=== PATIENT | female | born 1985 | race Caucasian/White ===

== ENCOUNTER 2019-11-11 12:54 | Outpatient (CLI) | payer OTHER, SELFPAY ==
[2019-11-11 13:30] LABS: Blood Urea Nitrogen 12 mg/dL (7-17); Calcium 9.2 mg/dL (8.4-10.2); Carbon Dioxide 23 mmol/L (22-30); Chloride 103 mmol/L (98-107); Cholesterol 196 mg/dL (0-200); Estimated Glomerular Filt Rate > 60; Glucose 227 mg/dL (65-105); HDL Direct 41 mg/dL; Potassium 4.2 mmol/L (3.4-5.0); Sodium 136 mmol/L (137-145); Triglycerides 169 mg/dL (<150)
[2019-11-11 13:41] LABS: LDL Cholesterol Direct 122 mg/dL
[2019-11-11 13:56] LABS: Creatinine Urine 180.9 mg/dL
[2019-11-11 14:01] LABS: MALB Creatinine Ratio 19.5 mg/g (0-30); Microalbumin Urine Random 35.3 mg/L (0-16.7)
[2019-11-13 13:27] LABS: Glutamic acid decarboxylase AA <5 IU/mL (<5)
[2019-11-13 20:34] LABS: C-Peptide 1.64 ng/mL (0.80-3.85)
[2019-11-19 16:45] LABS: Zinc Transporter 8 Antibody <10 U/mL (<15)
[2019-11-20 23:36] LABS: Islet Cell Antibody Screen NEGATIVE (NEGATIVE)
== END 2019-11-11 12:55 | disposition home or self-care (01) ==
PROVIDERS: PCP Internal Medicine; Visit Provider Internal Medicine Endocrinology, Diabetes & Metabolism
DX: E11.65 Type 2 diabetes mellitus with hyperglycemia (principal); Z79.4 Long term (current) use of insulin; Z68.37 Body mass index [BMI] 37.0-37.9, adult; E88.81 Metabolic syndrome and other insulin resistance
CPT/HCPCS: 36415; 80048; 80061; 82043; 84681; 86341

== ENCOUNTER 2019-11-11 14:52 | Emergency (ER) | payer OTHER, SELFPAY ==
--- NOTE | ~2019-11-11 | CT_ITS ---
EXAMINATION: CT abdomen pelvis w con EXAM DATE: 11/11/2019 16:39 INDICATION: Abdominal pain, distention. TECHNIQUE: Spiral CT of the abdomen and pelvis was performed following intravenous injection of 100 m L Omnipaque 350. Axial, coronal and sagittal images were reviewed. The dose-length product (DLP) fo r this examination was 1174.86 mGy-cm. The exposure was tailored according to patient size (auto mA exposure control), and iterative reconstruction (ASIR) was used as additional dose reduction techniqu e. Comparison is made to prior examination from 12/03/2007. FINDINGS: There is hepatic steatosis without suspicious focal lesion identified. Spleen, adrenal glan ds, pancreas are unremarkable. Gallbladder not identified, patient likely has had cholecystectomy. Portal and splenic veins are patent. Kidneys enhance symmetrically. There is no hydronephrosis. T here is IUD which appears to be centrally located within the endometrium, expected position. The rancho dder is unremarkable. There is no retroperitoneal or pelvic lymphadenopathy. Tiny umbilical fat-co ntaining hernia. The appendix is normal. The stomach and small bowel are unremarkable. There is expected amount of c olonic stool. No free intraperitoneal gas. The heart is normal in size. There are no pericardial or pleural effusions. The lung bases are unremarkable. The bones are unremarkable. No IMPRESSION: 1. Hepatic steatosis. 2. No acute intra-abdominal findings. Reviewed, dictated and finalized at location A.
[2019-11-11 15:02] VITALS: BP 143/90; PULSE 105; RESP 18; TEMP 36.6; O2SAT 98
--- NOTE | 2019-11-11 15:22 | ED.ABDPAIN ---
HPI - Abdominal Pain General Chief Complaint: Abdominal Pain Stated Complaint: abd pain, n/v/d Time Seen by Provider: 11/11/19 15:18 Source: patient Mode of arrival: ambulatory Limitations: no limitations History of Present Illness HPI narrative: Patient is a 34-year-old female who presents for evaluation of abdominal pain. Patient reports a 2-day history of worsening upper abdominal pain, that radiates to her back. Patient also reports abdominal distention and diarrhea. Patient reports she has had associated nausea and vomiting, unable to tolerate any oral intake over the past day. Patient denies fever, reports she has been burping often. She denies urinary symptoms. Patient has history of numerous abdominal surgeries including cholecystectomy, 2 sections, bladder repair. Patient denies any fever, cough, cold congestion type symptoms. Related Data Home Medications Medication Instructions Recorded Confirmed albuterol sulfate 90 mcg/actuation 2 puff INHALATION Q4H PRN 10/30/19 10/30/19 aerosol inhaler atorvastatin 20 mg tablet 20 mg PO DAILY 10/30/19 budesonide-formoterol HFA 160 2 puff INHALATION Q12H 10/30/19 10/30/19 mcg-4.5 mcg/actuation aerosol inhaler cetirizine 10 mg tablet 10 mg PO DAILY 10/30/19 montelukast 10 mg tablet 10 mg PO DAILY 10/30/19 10/30/19 venlafaxine 37.5 mg tablet 37.5 mg PO DAILY 10/30/19 insulin degludec [Tresiba 82 unit SUB-Q HS 11/11/19 FlexTouch U-200] valacyclovir 1,000 mg PO DAILY 11/11/19 Allergies Allergy/AdvReac Type Severity Reaction Status Date / Time Cephalosporins Allergy Severe KIDNEYS Verified 11/11/19 15:27 SHUT DOWN nitrofurantoin Allergy Severe HIVES/WHEEX Verified 11/11/19 15:27 ING sulfamethoxazole Allergy Severe ANAPHYLAXIS Verified 11/11/19 15:27 trimethoprim Allergy Severe ANAPHYLAXIS Verified 11/11/19 15:27 amoxicillin Allergy Intermediate RASH/HIVES Verified 11/11/19 15:27 Penicillins Allergy Intermediate RASH Verified 11/11/19 15:27 adhesive Allergy Mild Rash Verified 11/11/19 15:27 morphine Allergy Mild RASH Verified 11/11/19 15:27 cefaclor Allergy Unknown SERUM Verified 11/11/19 15:27 SICKNESS metoclopramide AdvReac Severe Anxiety Verified 11/11/19 15:27 Review of Systems Review of Systems: Narrative: CONSTITUTIONAL: Denies fever, chills, or sweats. ENT: Denies rhinorrhea, congestion, sore throat, or otalgia. CARDIOVASCULAR: Denies chest pain, palpitations, or edema. RESPIRATORY: Denies cough or dyspnea. GASTROINTESTINAL: Reports abdominal pain, nausea, vomiting, and diarrhea. GENITOURINARY: Denies dysuria or hematuria. SKIN: Denies rash or itching. MUSCULOSKELETAL: Denies back pain, joint pain, or myalgia. NEUROLOGIC: Denies headache, numbness, or weakness. FORMERLY [facility], [facility] Past Medical History Medical History Anxiety Asthma delivery delivered Depression Endometriosis High blood pressure History of gastroesophageal reflux (GERD) Urine incontinence Surgical History Surgical History H/O dilation and curettage H/O hand surgery History of bladder surgery Previous section Family History Family History Father Diabetes mellitus Social History Social History Smoking status: Never smoker Second hand tobacco smoke exposure: No Alcohol intake: never Substance use: never Additional living arrangements comments: lives with 2 daughter (2 and 12 yrs old) and her Additional occupation/education comments: works at [employer] Gender identity (if verbalized by the patient): Female Spiritual care concerns: No Agree to blood products: Yes Exam Narrative: Exam Narrative: GENERAL: Awake, alert, conversant HEAD: Normocephalic, atraumatic. EYES: PERRLA and EOMI
[2019-11-11 15:30] VITALS: BP 118/90; PULSE 104; RESP 16; TEMP 37.6; O2SAT 98
[2019-11-11 15:30] LABS: Basophils Absolute Auto 0.1 K/mm3 (0.0-0.1); Basophils Percent Auto 0.8 % (0.2-1.2); Eosinophils Absolute Auto 0.3 K/mm3 (0-0.3); Eosinophils Percent Auto 2.6 % (0-4.4); Hematocrit 46.8 % (37.0-47.0); Hemoglobin 15.5 g/dL (12.0-15.0); Immature Granulocyte Absolute 0.03 K/mm3 (0.00-0.031); Immature Granulocyte Percent A 0.3 % (0-0.5); Lymphocytes Percent Auto 44.9 % (18.3-44.2); Mean Corpuscular HGB Conc 33.1 g/dl (32-36); Mean Corpuscular Hemoglobin 29.4 pg (26-34); Mean Corpuscular Volume 88.8 fl (80-100); Mean Platelet Volume 9.7 fl (7.4-10.4); Monocytes Absolute Auto 0.7 K/mm3 (0.1-0.6); Monocytes Percent Auto 6.7 % (2.6-8.5); Neutrophils Absolute Auto 4.5 K/mm3 (1.3-6.7); Neutrophils Percent Auto 44.7 % (45.5-73.1); Platelet Count Result 330 k/mm3 (150-375); Red Blood Count 5.27 M/mm3 (4.2-5.4); Red Cell Distribution Width 12.3 % (11.5-14.5)
[2019-11-11 15:34] LABS: Add Urine Microscopic? YES; Appearance Urine Clear (Clear); Bacteria Urine Trace /hpf; Bilirubin Urine Negative (Negative); Blood Urine 1+ (Negative); Color Urine Yellow (Yellow); Glucose Urine UA 1+ mg/dL (Negative); Ketones Urine Negative (Negative); Leukocyte Esterase Ur Negative LEU/UL (Negative); Mucus Urine Rare /lpf; Nitrate Urine Negative (Negative); Protein Urine 1+ mg/dL (Negative); RBC Urine 0-2 /hpf (0-2); Specific Grav Ur 1.027 (1.001-1.035); Squamous Epithelial Cell Urine Many /hpf (Few); Urobilinogen Urine Negative mg/dL (<2.0); WBC Urine 0-3 /hpf
[2019-11-11 15:41] LABS: Alanine Aminotransferase 42 U/L (4-35); Albumin Level 4.8 g/dL (3.5-5.1); Alkaline Phosphatase 94 U/L (38-126); Aspartate Amino Transferase 44 U/L (14-36); Bilirubin,Total 0.6 mg/dL (0.2-1.3); Blood Urea Nitrogen 11 mg/dL (7-17); Calcium 9.5 mg/dL (8.4-10.2); Carbon Dioxide 24 mmol/L (22-30); Chloride 103 mmol/L (98-107); Estimated CRCL calculation 127 ml/min; Estimated Glomerular Filt Rate > 60; Glucose 197 mg/dL (65-105); Lipase 72 U/L (23-300); Sodium 136 mmol/L (137-145)
[2019-11-11] MEDS: ONDANSETRON INJ 4 MG/2 ML VIAL (17:46)
[2019-11-11] MEDS: SODIUM CHLORIDE 0.9% IV 2,000 ML 999 ML (17:46)
[2019-11-11 18:14] VITALS: BP 118/81; PULSE 84; RESP 16; TEMP 37.1; O2SAT 97
--- NOTE | 2019-11-11 18:28 | PC.NURSE ---
Pt declined 2nd liter of fluid. 1L infused.
== END 2019-11-11 18:31 | disposition home or self-care (01) ==
PROVIDERS: Emergency Medicine; Emergency Provider Emergency Medicine; PCP Internal Medicine
DX: R10.33 Periumbilical pain (principal); R11.2 Nausea with vomiting, unspecified; K76.0 Fatty (change of) liver, not elsewhere classified; F41.9 Anxiety disorder, unspecified; J45.909 Unspecified asthma, uncomplicated; I10 Essential (primary) hypertension; K21.9 Gastro-esophageal reflux disease without esophagitis
CPT/HCPCS: 36415; 74177; 80048; 80053; 80061; 81001; 81025; 82043; 83690; 84681; 85025; 86341; 96361; 96374; 96375; 99284; J2405; J3010; J7030; Q9967

== ENCOUNTER 2020-05-19 15:17 | Outpatient (CLI) | payer OTHER, SELFPAY ==
--- NOTE | ~2020-05-19 | XR_ITS ---
EXAMINATION: XR finger 5th RT min 2V DATE: 05/19/2020 15:40 INDICATION: Right hand fifth digit pain. TECHNIQUE: 3 views of right hand fifth digit were obtained. COMPARISON: None. FINDINGS: Bone alignment is normal. No fracture. There are 3 screws in diaphysis of fifth proximal ph alanx. Joint spaces are normal. IMPRESSION: 1. No acute fracture. Reviewed, dictated and finalized at location A. MAKER IMPRESSION: 1. No acute fracture.
== END 2020-05-19 15:18 | disposition home or self-care (01) ==
LOC: ANHIMG 15:25
PROVIDERS: PCP Internal Medicine; Visit Provider Plastic Surgery
DX: T84.84XA Pain due to internal orthopedic prosthetic devices, implants and grafts, initial encounter (principal); S62.64 Nondisplaced fracture of proximal phalanx of finger
CPT/HCPCS: 73140

== ENCOUNTER 2020-06-08 19:22 | Observation (INO) | payer OTHER, SELFPAY ==
[2020-06-08] VITALS (11 sets, daily range): BP systolic 126–140; BP diastolic 65–74; PULSE 107–127; RESP 20–24; TEMP 37.1; O2SAT 95–100
--- NOTE | ~2020-06-08 | XR_ITS ---
EXAMINATION: XR chest 2V DATE: 06/08/2020 21:32 INDICATION: Asthma presenting with shortness of breath and wheezing TECHNIQUE: PA and lateral views of the chest were obtained. COMPARISON: Chest radiograph dated 11/23/2017 FINDINGS: The lungs remain clear with no focal airspace opacities, pulmonary edema, pleural effusion or pneumot horax. The cardiomediastinal silhouette is normal. Visualized bones and soft tissues are unremarkable . IMPRESSION: 1. No acute cardiopulmonary disease. Reviewed, dictated and finalized at location H. PROSPECTOR
[2020-06-08] MEDS: IPRATROPIUM 0.5 MG/ALBUTEROL SULFATE 2.5 MG AMPUL.NEB 3 ML (19:45)
--- NOTE | 2020-06-08 20:02 | ED.ALLEREA ---
HPI - Allergic Reaction General Chief complaint: Upper Respiratory Infection Stated complaint: swollen all over, trouble breathing Source: patient Mode of arrival: ambulatory Limitations: no limitations History of Present Illness HPI narrative: Patient states she has had shortness of breath all day, gradually getting worse. She says she has asthma and has been admitted many times for this. Severity of shortness of breath is moderately severe, and ongoing. Nothing at work today made any difference. Exposure: unknown Symptoms: facial swelling and difficulty breathing Severity: severe Treatment prior to arrival: bronchodilator Previous Allergic Reaction History: other (Asthma, admissions in the past) Related Data Home Medications Medication Instructions Recorded Confirmed albuterol sulfate 90 mcg/actuation 2 puff INHALATION Q4H PRN 10/30/19 06/08/20 aerosol inhaler atorvastatin 20 mg tablet 20 mg PO DAILY 10/30/19 06/08/20 budesonide-formoterol HFA 160 2 puff INHALATION Q12H 10/30/19 06/08/20 mcg-4.5 mcg/actuation aerosol inhaler cetirizine 10 mg tablet 10 mg PO DAILY 10/30/19 06/08/20 montelukast 10 mg tablet 10 mg PO DAILY 10/30/19 06/08/20 venlafaxine 37.5 mg tablet 37.5 mg PO DAILY 10/30/19 06/08/20 valacyclovir 1,000 mg PO DAILY 11/11/19 06/08/20 bupropion HCl 300 mg PO DAILY 06/08/20 06/08/20 buspirone 11.25 mg PO DAILY 06/08/20 06/08/20 Allergies Allergy/AdvReac Type Severity Reaction Status Date / Time Cephalosporins Allergy Severe KIDNEYS Verified 11/11/19 15:27 SHUT DOWN nitrofurantoin Allergy Severe HIVES/WHEEX Verified 11/11/19 15:27 ING sulfamethoxazole Allergy Severe ANAPHYLAXIS Verified 11/11/19 15:27 trimethoprim Allergy Severe ANAPHYLAXIS Verified 11/11/19 15:27 amoxicillin Allergy Intermediate RASH/HIVES Verified 11/11/19 15:27 Penicillins Allergy Intermediate RASH Verified 11/11/19 15:27 adhesive Allergy Mild Rash Verified 11/11/19 15:27 morphine Allergy Mild RASH Verified 11/11/19 15:27 cefaclor Allergy Unknown SERUM Verified 11/11/19 15:27 SICKNESS metoclopramide AdvReac Severe Anxiety Verified 11/11/19 15:27 Review of Systems Review of Systems: All systems reviewed & are unremarkable except as noted in HPI and below (HPI) Constitutional: Constitutional: Reports no additional constitutional complaints Eyes: Eyes: Reports no additional eye complaints ENT: Reports system reviewed and no additional complaints, except as documented Cardiovascular: Cardiovascular: Reports no additional cardiovascular complaints Respiratory: Respiratory: Reports no additional respiratory complaints Gastrointestinal: Gastrointestinal: Reports no additional gastrointestinal complaints Genitourinary: Genitourinary: Reports no additional female genitourinary complaints Musculoskeletal: Musculoskeletal: Reports no additional musculoskeletal complaints Integumentary/Breasts: Skin/Breast: Reports system reviewed and no additional complaints, except as docu Neurologic: Reports system reviewed and no additional complaints, except as documented Psychiatric: Psychiatric: Reports no additional psychiatric complaints Endocrine: Endocrine: Reports no additional endocrine complaints Hematologic/Lymphatic: Hematologic/Lymphatic: Reports no additional hematologic/lymphatic complaints Allergic/Immunologic: Allergic/Immunologic: Reports no additional allergic/immunologic complaints PMFSH Past Medical History Medical History (Updated 06/08/20 @ 23:47 by Cheo Le MD) Anxiety Asthma delivery delivered Depression Endometriosis High blood pressure History of gastroesophageal reflux (GERD) Urine incontinence Surgical History Surgical History H/O dilation and curettage H/O hand surgery History of bladder surgery Previous section Family History Family History Father Phoebe
[2020-06-08] MEDS: ALBUTEROL SULFATE NEB 2.5 MG/3 ML INH 5 MG INHALATION (20:21)
[2020-06-08] MEDS: FAMOTIDINE 20 MG TABLET 40 MG PO (20:23)
[2020-06-08] MEDS: methylPREDNISolone SOD SUCC 125 MG VIAL IM (20:24)
[2020-06-08] MEDS: diphenhydrAMINE HCl INJ 50 MG/ML VIAL IM (20:24)
[2020-06-08] MEDS: EPINEPHrine HCL INJ 1 MG/ML AMPUL 0.3 MG IM ×2 (20:45→22:18)
--- NOTE | 2020-06-08 20:46 | ECG_ITS ---
Measurements Intervals [place] Rate: 118 P: 52 IL: 169 QRS: 42 QRSD: 94 T: 9 QT: 263 QTc: 368 Interpretive Statements SINUS TACHYCARDIA LOW QRS VOLTAGE IN PRECORDIAL LEADS BORDERLINE ST-T WAVE ABNORMALITY- ANT/INF LEADS BASELINE WANDER- III, V2-V4 ABNORMAL ECG Electronically Signed On 06-09-2020 7:28:20 RACQUET MAKER by Ricardo Farley D.O.
[2020-06-08 21:19] LABS: SARS-CoV-2 Ag Negative (Negative)
[2020-06-08 21:22] LABS: BNP < 5 pg/mL (0-100)
[2020-06-08 21:27] LABS: Anion Gap 12 mmol/L (8-16); Blood Urea Nitrogen 10 mg/dL (7-18); Calcium 9.3 mg/dL (8.5-10.1); Carbon Dioxide 28 mmol/L (21-32); Chloride 100 mmol/L (98-108); Estimated Glomerular Filt Rate > 60; Glucose 129 mg/dL (70-99); Osmolality Calculated 291 mOsm/kg (285-295); Potassium 3.3 mmol/L (3.5-5.1); Sodium 140 mmol/L (136-145); Troponin I < 0.02 ng/mL (0.00-0.056)
[2020-06-08] MEDS: IPRATROPIUM 0.5 MG/ALBUTEROL SULFATE 2.5 MG AMPUL.NEB 3 ML INHALATION (21:36)
[2020-06-08 22:03] LABS: D Dimer 0.19 mg/L (0.19-0.50)
[2020-06-08] MEDS: DEXAMETHASONE SOD PHOS INJ 4 MG/ML VIAL 6 MG BY MOUTH (22:18)
[2020-06-08] MEDS: POTASSIUM CHLORIDE 20 MEQ TABLET 40 MEQ PO (22:24)
[2020-06-08] MEDS: MAGNESIUM SULF 2 GM/WATER 50ML 2 GM/50 ML BAG IVPB (22:24)
[2020-06-08] MEDS: ACETAMINOPHEN 500 MG TABLET 1000 MG PO (22:25)
[2020-06-08] MEDS: ALBUTEROL SULFATE NEB 2.5 MG/3 ML INH INHALATION (23:24)
[2020-06-08 23:25] LABS: Add Urine Microscopic? NO; Appearance Urine Clear (Clear); Bilirubin Urine Negative (Negative); Blood Urine Negative (Negative); Color Urine Yellow (Yellow); Glucose Urine UA Negative (Negative); Ketones Urine Negative (Negative); Leukocyte Esterase Ur Negative (Negative); Nitrate Urine Negative (Negative); Protein Urine Negative (Negative); Specific Grav Ur >= 1.030 (1.010-1.020); Urobilinogen Urine 0.2 mg/dL (0.2-1.0); pH Urine 5.5 (5.0-8.0)
[2020-06-09] VITALS (11 sets, daily range): BP systolic 114–120; BP diastolic 54–62; PULSE 72–120; RESP 16–22; TEMP 36.1–36.9; O2SAT 94–99; BMI 41.4
--- NOTE | 2020-06-09 00:30 | ADMGEN ---
This patient, Elsy Kate, was admitted to 2nd Floor Room 204-2. Patient/family oriented to hospital policies and general routines including ID bracelet, bed and alarms, visiting hours, pain management, procedures, bathroom and other care routines, personal items, smoking policy, room service/diet, and visiting hours. Information on how to activate the Rapid Response Team has been discussed. Patient/Family are encouraged to report perceived risks to care and to ask questions if they do not understand what they are told or what they should do.
--- NOTE | 2020-06-09 00:30 | PC.NURSE ---
No password given, Patient states that her mom Shey and boyfriend [place] are permitted to discuss information regarding patient. Patient states to contact her mother first about issues.
[2020-06-09] MEDS: IPRATROPIUM 0.5 MG/ALBUTEROL SULFATE 2.5 MG AMPUL.NEB 3 ML INHALATION ×4 (01:14→13:59)
[2020-06-09] MEDS: methylPREDNISolone SOD SUCC 125 MG VIAL 60 MG IV PUSH ×3 (01:14→12:51)
--- NOTE | 2020-06-09 01:20 | PC.NURSE ---
Patient stating that she is having severe muscle cramps in arms where she received Epi injections IM to back of arms. Patient states that muscles cramps are down to her fingers, asking for something to help with cramping. N.O. received for baclofen.
[2020-06-09] MEDS: BACLOFEN 10 MG TABLET 30 MG (01:28)
--- NOTE | 2020-06-09 01:33 | PC.NURSE ---
[facility] called to ask for clarification about Baclofen dosage.
--- NOTE | 2020-06-09 01:35 | PC.NURSE ---
Dr. Le notifed about [facility] pharmacy's request for clarification on Baclofen for pt.
--- NOTE | 2020-06-09 01:42 | PC.NURSE ---
[facility] pharmacy notified of Dr. Le's clarification about the Baclofen order.
[2020-06-09 08:19] LABS: Basophils Absolute Auto 0.06 K/mm3 (0.00-0.10); Basophils Percent Auto 0.4 % (0.0-1.0); Eosinophils Percent Auto 1.3 % (1.0-6.0); Hemoglobin 14.7 g/dL (12.0-15.0); Immature Granulocyte Absolute 0.07 K/mm3 (0.00-0.00); Immature Granulocyte Percent A 0.5 % (0.0-0.0); Lymphocytes Absolute Auto 7.77 K/mm3 (1.10-4.50); Lymphocytes Percent Auto 50.3 % (18.0-42.0); Mean Corpuscular HGB Conc 32.7 g/dL (32.0-36.0); Mean Corpuscular Hemoglobin 29.6 pg (27.0-31.0); Mean Corpuscular Volume 90.5 fL (78.0-102.0); Mean Platelet Volume 9.8 fl (9.2-11.8); Monocytes Absolute Auto 0.77 K/mm3 (0.10-0.90); Neutrophils Absolute Auto 6.6 K/mm3 (1.7-7.2); Neutrophils Percent Auto 42.5 % (50.0-70.0); Platelet Count Result 332 K/mm3 (150-420); Red Blood Count 4.97 M/mm3 (4.20-5.40); Red Cell Distribution Width 12.3 % (11.6-14.4); White Blood Count 15.5 K/mm3 (4.8-10.8)
--- NOTE | 2020-06-09 08:54 | PC.NURSE ---
0730 does her own accucheck 254 and doses self with her own insulin pump. claims she is feeling better. claims she feels hoarse from all the coughing during night. maximo milian
--- NOTE | 2020-06-09 12:37 | PC.NURSE ---
Due to covid visitor restrictions, took patient's care keys and insurance card to Suzan at [facility], for patient's daughter would be coming to get them.
[2020-06-09] MEDS: BACLOFEN 10 MG TABLET 30 MG PO (12:51)
--- NOTE | 2020-06-09 14:33 | PM.SD ---
Same Day Admit/Disch: HPI History of Present Illness Chief complaint: asthma Narrative: Elsy Kate is a 34 year old female who came into the ER yesterday with swelling of the face and body swelling and acute asthma. On interviewing the patient asked her about any new items in the home and she concluded that there was a new cruz cream her started using yesterday made by the same manufacture but with a different sent. I informed her that this is probably the culprit of the asthma exacerbation and that she should discard this immediately. This morning patient states she is feeling a lot better her breathing has improved swelling has gone down and she is feeling more like herself and ready to go home. FORMERLY [facility] Past Medical History Medical History Anxiety Asthma delivery delivered Depression Endometriosis High blood pressure History of gastroesophageal reflux (GERD) Urine incontinence Surgical History Surgical History H/O dilation and curettage H/O hand surgery History of bladder surgery Previous section Family History Family History Father Diabetes mellitus Social History Social History Smoking status: Former smoker Second hand tobacco smoke exposure: No Alcohol intake: never Substance use: never Additional living arrangements comments: lives with 2 daughter (2 and 12 yrs old) and her Additional occupation/education comments: works at [employer] Gender identity (if verbalized by the patient): Female Sexual Orientation (if Verbalized by the Patient): Straight or Heterosexual Spiritual care concerns: No Agree to blood products: Yes Same Day Admit/Disch: Med Pre-admit Medications Home Medications Medication Instructions Recorded Confirmed Type albuterol sulfate 90 mcg/actuation 2 puff INHALATION Q4H PRN 10/30/19 06/08/20 History aerosol inhaler atorvastatin 20 mg tablet 20 mg PO DAILY 10/30/19 06/08/20 History budesonide-formoterol HFA 160 2 puff INHALATION Q12H 10/30/19 06/08/20 History mcg-4.5 mcg/actuation aerosol inhaler cetirizine 10 mg tablet 10 mg PO DAILY 10/30/19 06/08/20 History dulaglutide 1.5 mg/0.5 mL 1.5 mg SUB-Q WEEKLY 90 Days #6.5 ml 10/30/19 06/08/20 Rx subcutaneous pen injector montelukast 10 mg tablet 10 mg PO DAILY 10/30/19 06/08/20 History venlafaxine 37.5 mg tablet 37.5 mg PO DAILY 10/30/19 06/08/20 History blood-glucose meter,continuous #1 each 11/11/19 06/09/20 Rx valacyclovir 1,000 mg PO DAILY 11/11/19 06/08/20 History blood-glucose transmitter #3 each 12/09/19 06/09/20 Rx blood-glucose sensor #9 each 12/23/19 06/09/20 Rx insulin lispro 100 unit/mL See Rx Instructions .ROUTE 05/24/20 06/08/20 Rx subcutaneous solution .COMPLEX #180 ml bupropion HCl 300 mg PO DAILY 06/08/20 06/08/20 History buspirone 11.25 mg PO DAILY 06/08/20 06/08/20 History ipratropium-albuterol 3 ml INHALATION BID PRN #1 dose pk 06/09/20 Rx prednisolone sodium phosphate 30 mg PO BID #14 tablet 06/09/20 Rx Exam Const: General: cooperative, comfortable, no acute distress, alert, awake and Physically active Nutritional Appearance: obese morbidly obese Resp: Effort & Inspection: normal respiratory effort Auscultation: wheezes (Scattered throughout) Cardio: Rate: regular rate Rhythm: regular rhythm Heart sounds: S1 normal heart sound present and S2 normal heart sound present GI: GI Palp: Yes Soft to palpation Auscultation: normal bowel sounds Neuro: General: oriented to person, oriented to place and oriented to time (and events) Cranial nerves: Yes CN's II-XII intact bilaterally (grossly intact) Cognition (Neuro): normal cognition Speech: normal speech Motor exam (neuro): 5/5 motor strength present thr
--- NOTE | 2020-06-09 18:37 | PC.NURSE ---
[id number] discharge instructions went over. voices no c/o. left on her own accord. maximo milian
--- NOTE | 2020-06-09 21:44 | PM.EVENT ---
Event Note Event Note Event Note: I have examined the patient and reviewed the chart. I discussed the patient's care with Kelsey Miles APN and agree with his assessment and plan.
--- NOTE | 2020-06-14 13:31 | PC.NURSE ---
Pt states she received and understood her discharge instructions. She also states everybody was really great and nice and they were very attentive .
== END 2020-06-09 15:50 | disposition home or self-care (01) ==
LOC: CHSED 23:47 → CHS2ND 06-09 00:26
PROVIDERS: Nurse Practitioner Family; Admitting Provider Emergency Medicine; Emergency Provider Emergency Medicine; PCP Internal Medicine; Visit Provider Emergency Medicine
DX: J45.901 Unspecified asthma with (acute) exacerbation (principal); I10 Essential (primary) hypertension; K21.9 Gastro-esophageal reflux disease without esophagitis; E11.65 Type 2 diabetes mellitus with hyperglycemia; F32.9 Major depressive disorder, single episode, unspecified; F41.9 Anxiety disorder, unspecified; Z20.828 Contact with and (suspected) exposure to other viral communicable diseases; Z79.4 Long term (current) use of insulin; Z96.41 Presence of insulin pump (external) (internal)
CPT/HCPCS: 36415; 71046; 80048; 81003; 83880; 84484; 85025; 85380; 87426; 93005; 94640; 96365; 96372; 96375; 96376; 99285; A9270; G0378; J0171; J1100; J1200; J2930; J3475

== ENCOUNTER 2020-08-27 17:17 | Outpatient (CLI) | payer OTHER, SELFPAY ==
[2020-08-27 17:45] LABS: Anion Gap 8 mmol/L (8-16); Blood Urea Nitrogen 15 mg/dL (7-17); Calcium 9.6 mg/dL (8.4-10.2); Carbon Dioxide 31 mmol/L (22-30); Chloride 99 mmol/L (98-107); Estimated Glomerular Filt Rate > 60; Glucose 270 mg/dL (65-105); Potassium 4.1 mmol/L (3.4-5.0); Sodium 138 mmol/L (137-145)
== END 2020-08-27 17:18 | disposition home or self-care (01) ==
LOC: ANHLAB 17:19
PROVIDERS: PCP Internal Medicine; Visit Provider Anesthesiology
DX: Z01.812 Encounter for preprocedural laboratory examination (principal); E11.9 Type 2 diabetes mellitus without complications
CPT/HCPCS: 36415; 80048

== ENCOUNTER → 2020-08-28 00:33 | Outpatient (CLI) | payer OTHER, SELFPAY ==
[2020-08-28 19:49] LABS: SARS-CoV-2 RNA PCR Negative
== END ==
PROVIDERS: Family Provider Obstetrics & Gynecology; PCP Internal Medicine; Visit Provider Plastic Surgery
DX: Z01.812 Encounter for preprocedural laboratory examination (principal); Z20.822 Contact with and (suspected) exposure to COVID-19
CPT/HCPCS: C9803; U0003; U0005

== ENCOUNTER 2020-09-01 01:41 | Day surgery (SDC) | payer OTHER, SELFPAY ==
[2020-08-25 14:50] VITALS: BMI 41.0
--- NOTE | 2020-08-25 16:46 | PC.NURSE ---
PT STATES SHE HAD AN EMERGENT IN THE PAST AND WAS GIVEN PARALYTIC BUT WAS AWARE OF INTUBATION. AND SHE WOKE UP A FIGHTER .
--- NOTE | 2020-09-01 07:17 | WPDHPUPDATE1 ---
History and Physical Update Update Date/Time: 09/01/20 07:17 History and Physical has been reviewed, including an updated exam of the patient. There are NO changes in the patient's condition. Risks, benefits, and alternatives have been discussed and questions answered. Patient agrees to proceed with procedure.
[2020-09-01 07:30] VITALS: BP 132/94; PULSE 103; RESP 16; TEMP 36.1; O2SAT 99
[2020-09-01 07:49] LABS: Glucose Point of Care 276 (65-105)
--- NOTE | 2020-09-01 08:14 | WPDANESEPPF ---
Anes - Initial Pre Proc Eval Procedure: Operation Date: 09/01/20 09:15 Proposed Procedures p Right Open Carpal Tunnel Release - Issa Jeong MD s Right Ulnar Neuroplasty - Issa Jeong MD Date/Time: 09/01/20 08:14 Surgeon: Issa Jeong MD Pre Op Diagnosis: Right Carpal Tunnel Syndrome,Right Cubital Tunnel Patient Data Age: 35 Gender: F Height: 5 ft 3 in Weight: 105 kg Allergies Allergy/AdvReac Type Severity Reaction Status Date / Time Cephalosporins Allergy Severe KIDNEYS Verified 08/25/20 14:10 SHUT DOWN nitrofurantoin Allergy Severe HIVES/WHEEX Verified 08/25/20 14:10 ING sulfamethoxazole Allergy Severe ANAPHYLAXIS Verified 08/25/20 14:10 trimethoprim Allergy Severe ANAPHYLAXIS Verified 08/25/20 14:10 amoxicillin Allergy Intermediate RASH/HIVES Verified 08/25/20 14:10 Penicillins Allergy Intermediate RASH Verified 08/25/20 14:10 adhesive Allergy Mild Rash Verified 08/25/20 14:10 morphine Allergy Mild RASH Verified 08/25/20 14:10 cefaclor Allergy Unknown SERUM Verified 08/25/20 14:10 SICKNESS metoclopramide AdvReac Severe Anxiety Verified 08/25/20 14:10 Home Medications Medication Instructions Recorded Confirmed Type albuterol sulfate 90 mcg/actuation 2 puff INHALATION Q4H PRN 10/30/19 08/25/20 History aerosol inhaler atorvastatin 20 mg tablet 20 mg PO HS 10/30/19 08/25/20 History budesonide-formoterol HFA 160 2 puff INHALATION Q12H 10/30/19 08/25/20 History mcg-4.5 mcg/actuation aerosol inhaler cetirizine 10 mg tablet 10 mg PO HS 10/30/19 08/25/20 History dulaglutide 1.5 mg/0.5 mL 1.5 mg SUB-Q WEEKLY 90 Days #6.5 ml 10/30/19 08/25/20 Rx subcutaneous pen injector montelukast 10 mg tablet 10 mg PO HS 10/30/19 08/25/20 History venlafaxine 37.5 mg tablet 37.5 mg PO HS 10/30/19 08/25/20 History blood-glucose meter,continuous #1 each 11/11/19 06/09/20 Rx valacyclovir 1,000 mg PO HS 11/11/19 08/25/20 History blood-glucose transmitter #3 each 12/09/19 06/09/20 Rx blood-glucose sensor #9 each 12/23/19 06/09/20 Rx insulin lispro 100 unit/mL See Rx Instructions .ROUTE 05/24/20 08/25/20 Rx subcutaneous solution .COMPLEX #180 ml bupropion HCl 300 mg PO HS 06/08/20 08/25/20 History buspirone 11.25 mg PO HS 06/08/20 08/25/20 History ipratropium-albuterol 3 ml INHALATION BID PRN #1 dose pk 06/09/20 08/25/20 Rx Laboratory Tests 09/01/20 07:45 POC Capillary Glucose 276 mg/dl H mg/dl (65-105) Patient hx anesthesia problems: none Family hx anesthesia problems: none [facility] Past Medical History Medical History Anxiety Asthma delivery delivered Depression Endometriosis High blood pressure History of gastroesophageal reflux (GERD) Urine incontinence Surgical History Surgical History H/O dilation and curettage H/O hand surgery History of bladder surgery Previous section Family History Family History Father Diabetes mellitus Social History Social History Smoking status: Never smoker Second hand tobacco smoke exposure: No Alcohol intake: current Drinks per week: 1 Substance use: never Living arrangements: with family Additional living arrangements comments: lives with 2 daughter (2 and 12 yrs old) and her Additional occupation/education comments: works at [employer] Gender identity (if verbalized by the patient): Female Spiritual care concerns: No Agree to blood products: Yes Anes - Eval Final PreProcedure Day of Procedure 09/01/20 08:14 Patient weight: morbidly obese Heart: regular rate and rhythm Lungs: clear to auscultation Airway: Mallampati scale class III Neurological: alert and oriented Last oral intake: >/= 8 hours ASA classification: III Emergent:
[2020-09-01] MEDS: LACTATED RINGERS 1,000 ML 30 ML IV CONT (08:18)
--- NOTE | 2020-09-01 09:37 | PM.OP ---
Procedure Note - Brief Procedure Note - Brief Date of procedure: 09/01/20 Pre-op diagnosis: Right Carpal Tunnel Syndrome,Right Cubital Tunnel Post-op diagnosis: same Procedure performed: R OCTR and R ulnar neuroplasty at the elbow. Anesthesia: MAC Surgeon: Issa Jeong MD Estimated blood loss (mL): 2 Tourniquet time (min): 29 Drains: No Packing: No Pathology: none sent Complications: No immediate complications Condition: stable Disposition: same day
--- NOTE | 2020-09-01 09:38 | PM.PROC ---
Procedure Note - Detailed Date of procedure: 09/01/20 Pre-op diagnosis: Right Carpal Tunnel Syndrome,Right Cubital Tunnel Post-op diagnosis: same Procedure performed: R ulnar neuroplasty at the elbow. R OCTR Description of procedure: The left carpal tunnel and cubital tunnel areas were marked on the patient in the holding area. She was taken to the operating room and placed supine on the operating table. A time-out was held and confirmed. The extremity was prepped and draped in usual fashion. The tourniquet was applied eventually inflated to 250 mmHg. The 2 sites were locally infiltrated with 1% lidocaine with epinephrine. The left carpal tunnel release was done 1st. This was done with an incision in the palm as marked and blunt dissection to the palmar fascia. This and the carpal ligament were incised with a 15. Blade. Under 3 point retraction the ligament was divided distally and proximally to completely release it. There was no unusual anatomy noted the skin was closed with interrupted 5 0 nylon suture. Attention was then turned to the elbow which was flexed and supported on folded towels. The incision was made and dissected through the subcutaneous tissue to the medial epicondyle. The interspace between that and the olecranon was incised. The release was done with sharp dissection distally and proximally. All the compression appeared to be in the area of Kulkarni ligament. The nerve did not sublux. The wound was closed with interrupted 3-0 Monocryl sutures at the cross hatching harrison and a running intradermal 3-0 Monocryl to close the skin. The tourniquet was released and the usual bandage was applied. She is discharged from the operating room stable condition prescription for hydrocodone 10. Anesthesia: MAC Surgeon: Issa Jeong MD Entry Level Account Manager: lasha Estimated blood loss (mL): 2 Tourniquet time (min): 29 Drains: No Packing: No Pathology: none sent Complications: No immediate complications Condition: stable Disposition: same day
[2020-09-01] MEDS: LIDO 1%/EPINEPHRINE 1:100,000 50 ML VIAL INFILTRATE (10:17)
[2020-09-01 10:30] VITALS: BP 112/63; PULSE 102; RESP 16; O2SAT 97
[2020-09-01] MEDS: fentaNYL CITRATE INJ (*CRX) 100 MCG/2 ML VIAL 25 MCG IV PUSH (10:49)
[2020-09-01 11:00] VITALS: BP 115/65; PULSE 99; RESP 16; O2SAT 99
[2020-09-01 11:08] LABS: Glucose Point of Care 130 (65-105)
[2020-09-01 11:25] VITALS: BP 112/58; PULSE 100; RESP 16; O2SAT 100
[2020-09-01 11:35] VITALS: BP 101/62; PULSE 90; RESP 16; O2SAT 100
== END 2020-09-01 11:45 | disposition home or self-care (01) ==
PROVIDERS: Family Provider Obstetrics & Gynecology; PCP Internal Medicine; Visit Provider Plastic Surgery
PROC: (CPT 64721; principal; 2020-09-01 09:15)
PROC: (CPT 64721; 2020-09-01 09:15)
DX: G56.01 Carpal tunnel syndrome, right upper limb (principal); G56.21 Lesion of ulnar nerve, right upper limb; J45.909 Unspecified asthma, uncomplicated; I10 Essential (primary) hypertension; E11.9 Type 2 diabetes mellitus without complications; K21.9 Gastro-esophageal reflux disease without esophagitis; F41.8 Other specified anxiety disorders; Z79.4 Long term (current) use of insulin; E66.01 Morbid (severe) obesity due to excess calories; Z68.41 Body mass index [BMI] 40.0-44.9, adult
CPT/HCPCS: 64721; 64718; 36415; 80048; 82948; A9270; C9803; J2405; J2704; J3010; J7120; U0003; U0005

== ENCOUNTER 2020-09-27 17:41 | Outpatient (CLI) | payer OTHER, BC, SELFPAY ==
[2020-09-27 18:48] LABS: SARS-CoV-2 Ag Negative (Negative)
== END 2020-09-27 17:42 | disposition home or self-care (01) ==
LOC: CHSLAB 17:45
PROVIDERS: Visit Provider Allergy & Immunology
DX: Z20.822 Contact with and (suspected) exposure to COVID-19 (principal)
CPT/HCPCS: 87426; C9803

== ENCOUNTER 2021-01-25 14:51 | Outpatient (CLI) | payer OTHER, SELFPAY ==
[2021-01-25 17:31] LABS: SARS-CoV-2 RNA PCR Positive (Negative)
== END 2021-01-25 14:52 | disposition home or self-care (01) ==
LOC: CHSLAB 14:57
PROVIDERS: PCP Internal Medicine; Visit Provider Allergy & Immunology
DX: U07.1 COVID-19 (principal)
CPT/HCPCS: C9803; U0003; U0005

== ENCOUNTER 2021-02-02 16:39 | Emergency (ER) | payer OTHER, SELFPAY ==
--- NOTE | ~2021-02-02 | XR_ITS ---
EXAMINATION: XR chest 1V portable EXAM DATE: 02/02/2021 17:32 INDICATION: COVID+ dx on 01/23/21. Cough/SOB worsening. TECHNIQUE: Portable AP frontal chest x-ray was obtained. Comparison is made to prior examination from 06/08/2020. FINDINGS: Small amount of acute airspace disease in the right midlung zone, nonspecific infectious pr ocess but could be COVID pneumonia given history provided. Left lung is clear. Cardiomediastinal silh ouette is normal. There is no pneumothorax suspected. There are no pleural effusions. IMPRESSION: Small amount of right midlung zone pneumonia. Reviewed, dictated and finalized at location A.
[2021-02-02 16:45] VITALS: BP 110/89; PULSE 99; RESP 20; TEMP 37.7; O2SAT 98
--- NOTE | 2021-02-02 16:52 | ED.URI ---
HPI - URI/Sore Throat General Chief Complaint: Upper Respiratory Infection Stated Complaint: coughm trouble breathing,throwing up,fever Time Seen by Provider: 02/02/21 16:52 Source: patient Mode of arrival: ambulatory Limitations: no limitations History of Present Illness HPI Narrative: This young woman comes in with a history being diagnosed with covid 8 days ago. Since then she has had intermittent nausea and emesis, which has been mostly mild in nature. Today it has been somewhat more severe. She comes in requesting fluids, and not feeling well. Fatigue has been moderately sever and ongoing. She has had a hyperactive nonproductive cough. Cough and other symptoms have been present for 8 days. MD elicited complaint: fever Consistency: intermittent Description of mucous: watery Exacerbating factors: nothing Relieving factors: nothing Context: sick contacts Associated symptoms: fever, chills, myalgias, rhinorrhea and sore throat Treatments prior to arrival: acetaminophen Related Data Home Medications Medication Instructions Recorded Confirmed albuterol sulfate 90 mcg/actuation 2 puff INHALATION Q4H PRN 10/30/19 02/02/21 aerosol inhaler atorvastatin 20 mg tablet 20 mg PO HS 10/30/19 02/02/21 budesonide-formoterol HFA 160 2 puff INHALATION Q12H 10/30/19 02/02/21 mcg-4.5 mcg/actuation aerosol inhaler cetirizine 10 mg tablet 10 mg PO HS 10/30/19 02/02/21 montelukast 10 mg tablet 10 mg PO HS 10/30/19 02/02/21 venlafaxine 37.5 mg tablet 37.5 mg PO HS 10/30/19 02/02/21 valacyclovir 1,000 mg PO HS 11/11/19 02/02/21 Allergies Allergy/AdvReac Type Severity Reaction Status Date / Time Cephalosporins Allergy Severe KIDNEYS Verified 09/01/20 08:29 SHUT DOWN nitrofurantoin Allergy Severe HIVES/WHEEX Verified 09/01/20 08:29 ING sulfamethoxazole Allergy Severe ANAPHYLAXIS Verified 09/01/20 08:29 trimethoprim Allergy Severe ANAPHYLAXIS Verified 09/01/20 08:29 amoxicillin Allergy Intermediate RASH/HIVES Verified 09/01/20 08:29 Penicillins Allergy Intermediate RASH Verified 09/01/20 08:29 adhesive Allergy Mild Rash Verified 09/01/20 08:29 morphine Allergy Mild RASH Verified 09/01/20 08:29 cefaclor Allergy Unknown SERUM Verified 09/01/20 08:29 SICKNESS metoclopramide AdvReac Severe Anxiety Verified 09/01/20 08:29 Review of Systems Constitutional: Constitutional: Reports fatigue and Reports fever(s) Eyes: Eyes: Reports no additional eye complaints ENT: Reports system reviewed and no additional complaints, except as documented Cardiovascular: Cardiovascular: Reports no additional cardiovascular complaints Respiratory: Respiratory: Reports no additional respiratory complaints Gastrointestinal: Gastrointestinal: Reports no additional gastrointestinal complaints Genitourinary: Genitourinary: Reports no additional female genitourinary complaints Musculoskeletal: Musculoskeletal: Reports no additional musculoskeletal complaints Integumentary/Breasts: Skin/Breast: Reports system reviewed and no additional complaints, except as docu Neurologic: Reports system reviewed and no additional complaints, except as documented Psychiatric: Psychiatric: Reports no additional psychiatric complaints Endocrine: Endocrine: Reports no additional endocrine complaints Hematologic/Lymphatic: Hematologic/Lymphatic: Reports no additional hematologic/lymphatic complaints Allergic/Immunologic: Allergic/Immunologic: Reports no additional allergic/immunologic complaints [facility] Past Medical History Medical History Anxiety Asthma delivery delivered Depression Endometriosis High blood pressure History of gastroesophageal reflux (GERD) Urine incontinence Surgical History Surgical History H/O dilation and curettage H/O hand surgery History of bladder surgery Previous section Family History Family H
[2021-02-02] MEDS: ONDANSETRON INJ 4 MG/2 ML VIAL IV PUSH (17:20)
[2021-02-02] MEDS: LACTATED RINGERS 1,000 ML 999 ML IV CONT (17:20)
[2021-02-02 17:43] LABS: Basophils Absolute Auto 0.01 K/mm3 (0.00-0.10); Basophils Percent Auto 0.3 % (0.0-1.0); Hematocrit 45.4 % (35.0-49.0); Immature Granulocyte Absolute 0.01 K/mm3 (0.00-0.00); Immature Granulocyte Percent A 0.3 % (0.0-0.0); Lymphocytes Absolute Auto 2.36 K/mm3 (1.10-4.50); Lymphocytes Percent Auto 59.1 % (18.0-42.0); Mean Corpuscular Hemoglobin 28.9 pg (27.0-31.0); Mean Corpuscular Volume 87.5 fL (78.0-102.0); Mean Platelet Volume 10.2 fl (9.2-11.8); Monocytes Absolute Auto 0.22 K/mm3 (0.10-0.90); Monocytes Percent Auto 5.5 % (2.0-11.0); Neutrophils Absolute Auto 1.4 K/mm3 (1.7-7.2); Neutrophils Percent Auto 34.8 % (50.0-70.0); Platelet Count Result 213 K/mm3 (150-420); Red Blood Count 5.19 M/mm3 (4.20-5.40); Red Cell Distribution Width 11.9 % (11.6-14.4)
[2021-02-02 17:53] LABS: Alanine Aminotransferase 29 U/L (14-59); Albumin Level 3.5 g/dL (3.4-5.0); Alkaline Phosphatase 106 U/L (46-116); Anion Gap 14 mmol/L (8-16); Aspartate Amino Transferase 29 U/L (15-37); Bilirubin,Total 0.4 mg/dL (0.00-1.00); Blood Urea Nitrogen 11 mg/dL (7-18); Calcium 8.6 mg/dL (8.5-10.1); Carbon Dioxide 27 mmol/L (21-32); Chloride 105 mmol/L (98-108); Estimated CRCL calculation 95 ml/min; Estimated Glomerular Filt Rate > 60; Glucose 118 mg/dL (70-99); Osmolality Calculated 302 mOsm/kg (285-295); Potassium 3.3 mmol/L (3.5-5.1); Sodium 146 mmol/L (136-145); Total Protein 7.3 g/dL (6.4-8.2)
[2021-02-02] MEDS: DEXAMETHASONE 4 MG TABLET 8 MG (18:35)
[2021-02-02 19:03] VITALS: PULSE 104; RESP 20; O2SAT 98
== END 2021-02-02 19:04 | disposition home or self-care (01) ==
PROVIDERS: Emergency Provider Emergency Medicine; PCP Internal Medicine
DX: U07.1 COVID-19 (principal)
CPT/HCPCS: 36415; 71045; 80053; 85025; 96361; 96374; 96375; 99283; 99284; A9270; J2405; J7120; J8540

== ENCOUNTER 2021-07-02 19:33 | Emergency (ER) | payer OTHER, SELFPAY ==
[2021-07-02] VITALS (10 sets, daily range): BP systolic 130–158; BP diastolic 70–88; PULSE 100–129; RESP 20–30; TEMP 36.6; O2SAT 98–100
--- NOTE | ~2021-07-02 | XR_ITS ---
EXAMINATION: XR chest 1V portable 07/02/2021 20:00 INDICATION: Shortness of breath. Asthma. PROCEDURE: AP portable chest COMPARISON: Comparison to multiple prior studies sequentially, with oldest reviewed study dated 06/16. FINDINGS: The lungs are clear. The cardiomediastinal silhouette is within normal limits. There are no pleural effusions. There is no pneumothorax suspected. IMPRESSION: 1: NO ACUTE CARDIOPULMONARY DISEASE. Reviewed, dictated and finalized at location A. OPERATIONS SPECIALIST
[2021-07-02] MEDS: IPRATROPIUM 0.5 MG/ALBUTEROL SULFATE 2.5 MG AMPUL.NEB 3 ML INHALATION ×2 (19:40→22:20)
--- NOTE | 2021-07-02 19:43 | ED.SOB ---
HPI - SOB/Dyspnea General Chief Complaint: Shortness of Breath/Dyspnea Stated Complaint: trouble breathing Time Seen by Provider: 07/02/21 19:43 Source: patient History of Present Illness HPI Narrative: 35-year-old female with a history of prior anaphylactic reactions, asthma, diabetes mellitus on insulin pump developed -- acute shortness of breath-hour prior to coming to the ER. -- She felt her throat closing. She took a breathing treatment and self injected epinephrine. she continued to have severe shortness of breath with cough and wheezing for which she presented to the ER. MD elicited complaint: shortness of breath, cough and asthma attack Pertinent past history: asthma and other ( History of prior anaphylactic reactions involving bronchospasm) Onset (ago): minute(s) ( 30 minutes) Context: other ( no obvious precipitating factor.) Timing: constant Severity: severe Exacerbating factors: lying flat Relieving factors: nothing Known history of: asthma Associated symptoms: cough, wheezing and palpitations Treatment prior to arrival: bronchodilator and other ( IM epinephrine) Related Data Home oxygen amount: none Home Medications Medication Instructions Recorded Confirmed albuterol sulfate 90 mcg/actuation 2 puff INHALATION Q4H PRN 10/30/19 07/02/21 aerosol inhaler budesonide-formoterol HFA 160 2 puff INHALATION Q12H 10/30/19 07/02/21 mcg-4.5 mcg/actuation aerosol inhaler cetirizine 10 mg tablet 10 mg PO HS 10/30/19 07/02/21 montelukast 10 mg tablet 10 mg PO HS 10/30/19 07/02/21 venlafaxine 37.5 mg tablet 37.5 mg PO HS 10/30/19 07/02/21 valacyclovir 1,000 mg PO HS 11/11/19 07/02/21 Allergies Allergy/AdvReac Type Severity Reaction Status Date / Time Cephalosporins Allergy Severe KIDNEYS Verified 09/01/20 08:29 SHUT DOWN nitrofurantoin Allergy Severe HIVES/WHEEX Verified 09/01/20 08:29 ING sulfamethoxazole Allergy Severe ANAPHYLAXIS Verified 09/01/20 08:29 trimethoprim Allergy Severe ANAPHYLAXIS Verified 09/01/20 08:29 amoxicillin Allergy Intermediate RASH/HIVES Verified 09/01/20 08:29 Penicillins Allergy Intermediate RASH Verified 09/01/20 08:29 adhesive Allergy Mild Rash Verified 09/01/20 08:29 morphine Allergy Mild RASH Verified 09/01/20 08:29 cefaclor Allergy Unknown SERUM Verified 09/01/20 08:29 SICKNESS egg yolk Allergy Anxiety Verified 07/02/21 21:01 tree nut Allergy Anxiety Verified 07/02/21 21:01 metoclopramide AdvReac Severe Anxiety Verified 09/01/20 08:29 Review of Systems Review of Systems: All systems reviewed & are unremarkable except as noted in HPI and below Constitutional: Constitutional: Reports as per HPI and Reports no additional constitutional complaints Eyes: Eyes: Reports as per HPI and Reports no additional eye complaints ENT: Reports system reviewed and no additional complaints, except as documented Comments: in addition to shortness of breath the patient had throat swelling and felt that her throat was shutting off. Cardiovascular: Cardiovascular: Reports as per HPI, Reports no additional cardiovascular complaints and Reports chest pain Respiratory: Respiratory: Reports as per HPI, Reports cough, Reports dyspnea and Reports wheezing Gastrointestinal: Gastrointestinal: Reports as per HPI and Reports no additional gastrointestinal complaints Genitourinary: Genitourinary: Reports no additional female genitourinary complaints Musculoskeletal: Musculoskeletal: Reports no additional musculoskeletal complaints Integumentary/Breasts: Skin/Breast: Reports system reviewed and no additional complaints, except as docu Comments: No skin rash Neurologic: Reports system reviewed and no additional complaints, except as documented and Reports behavioral changes ( patient is very anxious and tremulous) Psychiatric: Psychiatric: Reports anxiety Endocrine: Endocrine: Reports no additional endocrine complaints Hematologic/Lymphatic: Hematologic/Lymphatic: Reports no ash
--- NOTE | 2021-07-02 19:45 | ECG_ITS ---
Measurements Intervals [place] Rate: 112 P: RI: 0 QRS: 47 QRSD: 99 T: 54 QT: 286 QTc: 391 Interpretive Statements SINUS OR ECTOPIC ATRIAL TACHYCARDIA INCOMPLETE RIGHT BUNDLE BRANCH BLOCK BORDERLINE ST-T WAVE ABNORMALITY- DIFFUSE LEADS ABNORMAL ECG Electronically Signed On 07-03-2021 8:12:56 ROUTE DELIVERY SUPERVISOR by Ricardo Farley D.O.
[2021-07-02] MEDS: SODIUM CHLORIDE 0.9% IV 500 ML IV CONT (20:10)
[2021-07-02 20:12] LABS: Hematocrit 41.6 % (35.0-49.0); Hemoglobin 14.1 g/dL (12.0-15.0); Mean Corpuscular HGB Conc 33.9 g/dL (32.0-36.0); Mean Corpuscular Volume 85.6 fL (78.0-102.0); Mean Platelet Volume 9.6 fl (9.2-11.8); Platelet Count Result 321 K/mm3 (150-420); Red Blood Count 4.86 M/mm3 (4.20-5.40); Red Cell Distribution Width 11.7 % (11.6-14.4); White Blood Count 12.1 K/mm3 (4.8-10.8)
[2021-07-02] MEDS: methylPREDNISolone SOD SUCC 125 MG VIAL IM (20:23)
[2021-07-02 20:31] LABS: Alanine Aminotransferase 18 U/L (14-59); Albumin Level 3.7 g/dL (3.4-5.0); Alkaline Phosphatase 97 U/L (46-116); Anion Gap 15 mmol/L (8-16); Aspartate Amino Transferase 14 U/L (15-37); Bilirubin,Total 0.3 mg/dL (0.00-1.00); Blood Urea Nitrogen 15 mg/dL (7-18); Calcium 8.7 mg/dL (8.5-10.1); Carbon Dioxide 24 mmol/L (21-32); Chloride 102 mmol/L (98-108); Estimated CRCL calculation 62 ml/min; Estimated Glomerular Filt Rate > 60; Glucose 277 mg/dL (70-99); NT Pro B Type Natriuretic Pept 31 pg/mL (0-125); Osmolality Calculated 302 mOsm/kg (285-295); Potassium 2.9 mmol/L (3.5-5.1); Sodium 141 mmol/L (136-145); Total Protein 7.4 g/dL (6.4-8.2); Troponin I < 4.0 ng/L (0.00-60.4)
[2021-07-02] MEDS: LORazepam INJ (*CRX) 2 MG/ML VIAL 1 MG IV PUSH (20:37)
[2021-07-02 21:31] LABS: Neutrophils Percent Manual 28 % (46-73); Total Cells Counted 100
[2021-07-02 21:32] LABS: Atypical Lymphocytes Present; Band Neutrophils Percent 0 % (0-6); Basophils Percent Manual 0 % (0-1); Eosinophils Percent Manual 5 % (1-6); Lymphocytes Absolute Manual 7.86 K/mm3 (1.1-4.5); Lymphocytes Percent Manual 65 % (18-44); Monocytes Absolute Manual 0.24 K/mm3 (0.1-0.90); Monocytes Percent Manual 2 % (3-9); Neutrophils Absolute Manual 3.38 K/mm3 (1.7-7.2); Platelet Estimate Adequate (Adequate)
[2021-07-02] MEDS: diphenhydrAMINE HCl CAP 25 MG CAPSULE PO (22:43)
[2021-07-02] MEDS: FAMOTIDINE 20 MG TABLET PO (22:44)
[2021-07-02] MEDS: POTASSIUM CHLORIDE 20 MEQ TABLET 40 MEQ PO (22:44)
[2021-07-02] MEDS: SPIRONOLACTONE 12.5 MG TABLET PO (23:01)
--- NOTE | 2021-07-02 23:49 | PC.NURSE ---
vital signs charted at 2341 were from 194
== END 2021-07-02 23:30 | disposition home or self-care (01) ==
PROVIDERS: Emergency Provider Internal Medicine Critical Care Medicine; PCP Internal Medicine
DX: E87.6 Hypokalemia (principal); T78.2XXA Anaphylactic shock, unspecified, initial encounter; J45.51 Severe persistent asthma with (acute) exacerbation
CPT/HCPCS: 36415; 71045; 80053; 83880; 84484; 85025; 93005; 96361; 96372; 96374; 99283; 99284; A9270; J2060; J2930; J7040

== ENCOUNTER 2021-10-27 07:16 | Emergency (ER) | payer OTHER, SELFPAY ==
--- NOTE | ~2021-10-27 | CT_ITS ---
EXAMINATION: CT lumbar spine wo con DATE: 10/27/2021 08:31 INDICATION: Back injury. Right buttock and right leg numbness and tingling. TECHNIQUE: Computed tomography (CT) of the lumbar spine was performed without intravenous contrast. A utomated exposure control and iterative reconstruction technique were employed. The dose-length produ ct was 433.44 mGy-cm. COMPARISON: None FINDINGS: There is an intrauterine device in expected position. There is 9 degrees dextrocurvature of lumbar spine. Vertebral body heights and intervertebral disc heights are normal. The following disc levels are specifically discussed: L1-L2: The disc does not extend beyond the endplate margin. There is mild bilateral facet joint osteo arthritis. There is no neural foraminal stenosis. There is no central canal stenosis. L2-L3: The disc does not extend beyond the endplate margin. There is mild bilateral facet joint osteo arthritis. There is no neural foraminal stenosis. There is no central canal stenosis. L3-L4: The disc is bulging. There is mild bilateral facet joint osteoarthritis. There is mild bilater al neural foraminal stenosis. There is no central canal stenosis. L4-L5: The disc is bulging. There is mild bilateral facet joint osteoarthritis. There is mild bilater al neural foraminal stenosis. There is mild central canal stenosis. L5-S1: The disc is bulging. There is mild bilateral facet joint osteoarthritis. There is mild right n eural foraminal stenosis. There is mild central canal stenosis. IMPRESSION: 1. Mild lumbar spondylosis. Reviewed, dictated and finalized at location A. IMPRESSION: 1. Mild lumbar spondylosis.
--- NOTE | ~2021-10-27 | XR_ITS ---
EXAMINATION: XR hip RT 2V w AP pelvis INDICATION: Right hip pain after fall TECHNIQUE: AP view the pelvis and two views of the right hip are obtained. COMPARISON: None available FINDINGS: Bone alignment is normal. There is no fracture. An IUD is noted. There are phleboliths of t he pelvis. IMPRESSION: 1. No acute osseous abnormality. Reviewed, dictated and finalized at location A.
[2021-10-27 07:24] VITALS: BP 119/88; PULSE 91; RESP 20; TEMP 36.2; O2SAT 100
--- NOTE | 2021-10-27 07:45 | ED.FALL ---
HPI - Fall General Chief Complaint: Fall Stated Complaint: BACK PAIN Time Seen by Provider: 10/27/21 07:45 Source: patient Mode of arrival: wheelchair Limitations: no limitations History of Present Illness HPI Narrative: this is a 36-year-old female with no significant past medical history, apparently while outdoors getting ready to go to work she slipped and fell on her lower back and tailbone and right hip area, currently having pain that she rates about a 8/10 with numbness and tingling radiating down into her right lower extremity. Patient had no symptoms prior to her fall, denies any dizziness no lightheadedness no chest pain no shortness of breaths no nausea vomiting no fever chills. Patient denies any head injury and denies loss of consciousness. MD complaint: fall Onset (ago): hour(s) Fall from: standing Fall witnessed: no Place fall occurred: street Loss of consciousness: none Prolonged down time: no Symptoms prior to fall: none Context: tripped/slipped Related Data Home Medications Medication Instructions Recorded Confirmed albuterol sulfate 90 mcg/actuation 2 puff INHALATION Q4H PRN 10/30/19 07/02/21 aerosol inhaler budesonide-formoterol HFA 160 2 puff INHALATION Q12H 10/30/19 07/02/21 mcg-4.5 mcg/actuation aerosol inhaler cetirizine 10 mg tablet 10 mg PO HS 10/30/19 07/02/21 montelukast 10 mg tablet 10 mg PO HS 10/30/19 07/02/21 semaglutide [Ozempic] 4 mg SUBCUT WEEKLY 10/27/21 10/27/21 Allergies Allergy/AdvReac Type Severity Reaction Status Date / Time Cephalosporins Allergy Severe KIDNEYS Verified 09/01/20 08:29 SHUT DOWN nitrofurantoin Allergy Severe HIVES/WHEEX Verified 09/01/20 08:29 ING sulfamethoxazole Allergy Severe ANAPHYLAXIS Verified 09/01/20 08:29 trimethoprim Allergy Severe ANAPHYLAXIS Verified 09/01/20 08:29 amoxicillin Allergy Intermediate RASH/HIVES Verified 09/01/20 08:29 Penicillins Allergy Intermediate RASH Verified 09/01/20 08:29 adhesive Allergy Mild Rash Verified 09/01/20 08:29 morphine Allergy Mild RASH Verified 09/01/20 08:29 cefaclor Allergy Unknown SERUM Verified 09/01/20 08:29 SICKNESS egg yolk Allergy Anxiety Verified 07/02/21 21:01 tree nut Allergy Anxiety Verified 07/02/21 21:01 metoclopramide AdvReac Severe Anxiety Verified 09/01/20 08:29 Review of Systems Review of Systems: All systems reviewed & are unremarkable except as noted in HPI and below PMFSH Past Medical History Medical History Anxiety Asthma delivery delivered Depression Endometriosis High blood pressure History of gastroesophageal reflux (GERD) Urine incontinence Surgical History Surgical History H/O dilation and curettage H/O hand surgery History of bladder surgery Previous section Family History Family History Father Diabetes mellitus Social History Social History Smoking status: Never smoker Second hand tobacco smoke exposure: No Alcohol intake: current Drinks per week: 1 Substance use: never Additional living arrangements comments: lives with 2 daughter (2 and 12 yrs old) and her Additional occupation/education comments: works at [employer] Gender identity (if verbalized by the patient): Female Sexual Orientation (if Verbalized by the Patient): Straight or Heterosexual Spiritual care concerns: No Agree to blood products: Yes Exam Const: General: no acute distress and alert Orientation/consciousness: patient oriented x3 HENMT: Head: normal to inspection Eyes: Conjunctivae: conjunctivae normal Pupils: Equal, round and reactive pupils present Neck: Neck: normal visual inspection, no lymphadenopathy and no meningeal signs Chest: Chest palpation & inspection: normal inspec
[2021-10-27] MEDS: KETOROLAC (*BKC) 60 MG/2 ML VIAL IM (07:50)
[2021-10-27 08:07] LABS: Urine Pregnancy Test Negative
[2021-10-27 08:08] LABS: Pregnancy On Board Control Positive
[2021-10-27 08:50] VITALS: BP 106/68; PULSE 78; RESP 20; TEMP 36.7; O2SAT 100
== END 2021-10-27 09:10 | disposition home or self-care (01) ==
PROVIDERS: Emergency Provider Emergency Medicine; PCP Internal Medicine
DX: M54.30 Sciatica, unspecified side (principal)
CPT/HCPCS: 72131; 73502; 81025; 96372; 99284; J1885

== ENCOUNTER 2022-01-19 14:46 | Outpatient (CLI) | payer OTHER, SELFPAY ==
--- NOTE | ~2022-01-19 | US_ITS ---
EXAMINATION: US pelvic complete w TV DATE: 01/19/2022 15:29 INDICATION: Abnormal uterine bleeding. IUD placement. Comparison:No prior studies for comparison. TECHNIQUE: Multiple transabdominal and endovaginal sonographic images of the pelvis performed. FINDINGS: The uterus measures 8.6 x 4.1 x 4.8 cm. There is an IUD located in the endometrium. The end ometrial complex measures 5 mm. The right ovary measures 2.8 x 2 x 1.9 cm and the left ovary measures 4.1 x 1.8 x 2 cm. There are sm all follicles in each ovary. Normal doppler signal in both ovaries. There is no free fluid in the pelvis. There are no abnormal masses seen on either side. IMPRESSION: 1. Unremarkable pelvic ultrasound. IUD in expected position. Reviewed, dictated and finalized at location A.
== END 2022-01-19 14:47 | disposition home or self-care (01) ==
PROVIDERS: PCP Internal Medicine; Visit Provider Nurse Practitioner Obstetrics & Gynecology
DX: N93.9 Abnormal uterine and vaginal bleeding, unspecified (principal); Z97.5 Presence of (intrauterine) contraceptive device
CPT/HCPCS: 76830; 76856

== ENCOUNTER 2023-01-10 19:23 | Emergency (ER) | payer OTHER, BC, SELFPAY ==
--- NOTE | ~2023-01-10 | CT_ITS ---
EXAMINATION: CT brain wo con DATE: 01/10/2023 19:43 INDICATION: DIZZY/SLURRED SPEECH/RIGHT FACIAL DROOP . TECHNIQUE: Computed tomography (CT) of the head was performed without intravenous contrast. The mA wa s adjusted according to patient size. Iterative reconstruction technique was employed. The dose-lengt h product was 681.00 mGy-cm. COMPARISON: None. FINDINGS: No acute intracranial hemorrhage or extra-axial fluid collection. No hydrocephalus, mass, or herniation. No acute ischemic infarct. Unremarkable dural venous sinus attenuation. No acute osseous abnormality. Nodular opacities in the bilateral maxillary and sphenoid sinuses, the remaining aerated spaces are c lear. IMPRESSION: No acute intracranial process. Reviewed, dictated and finalized at location K.
--- NOTE | 2023-01-10 19:34 | ECG_ITS ---
Measurements Intervals [place] Rate: 93 P: 75 CA: 175 QRS: 69 QRSD: 86 T: 76 QT: 340 QTc: 424 Interpretive Statements SINUS RHYTHM NORMAL ECG COMPARED TO ECG 07/02/2021 22:37:25 SINUS RHYTHM NOW PRESENT Electronically Signed On 01-12-2023 17:31:06 CDT by Mirza Price M.D.
--- NOTE | 2023-01-10 19:37 | ED.NEUROSD ---
HPI - Neuro Symptoms/Deficit General Chief Complaint: Neuro Symptoms/Deficit Stated Complaint: stroke-like symptoms Source: patient and family Mode of arrival: ambulatory Limitations: no limitations History of Present Illness HPI Narrative: 37-year-old female with a history of asthma, depression, diabetes mellitus, dyslipidemia, peripartum cardiomyopathy, status post gastric sleeve was coming off of the restaurant when she developed acute onset -- right facial droop with right-sided weakness -- decreased sensation on the right side -- blurred vision on the right side last known well 1899 . presented to the ER at 7:30 p.m. Patient is hemodynamically stable. Onset (ago): minute(s) ( Started 30 minutes ago) Time: 19:30 Last Observed Normal: 19:00 Timing confirmed by: spouse Location: right face, right arm and right leg History of same: No Severity: moderate Quality: weak, numb and tingling Relieving factors: none Exacerbating factors: none Context: sudden onset On Anticoagulants: No Associated symptoms: denies other symptoms Treatments Prior to Arrival: none Related Data Home Medications Medication Instructions Recorded Confirmed albuterol sulfate 90 mcg/actuation 2 puff inhalation Q4H PRN 10/30/19 12/14/22 aerosol inhaler (ProAir HFA) Shortness Of Breath Or Wheezing budesonide-formoterol HFA 160 2 puff inhalation Q12H 10/30/19 12/14/22 mcg-4.5 mcg/actuation aerosol inhaler (Symbicort) cetirizine 10 mg tablet (All Day 10 mg PO HS 10/30/19 12/14/22 Allergy (cetirizine)) montelukast 10 mg tablet 10 mg PO HS 10/30/19 12/14/22 venlafaxine 75 mg tablet 150 mg PO DAILY 12/14/22 12/14/22 Allergies Allergy/AdvReac Type Severity Reaction Status Date / Time Cephalosporins Allergy Severe KIDNEYS Verified 12/14/22 08:38 SHUT DOWN nitrofurantoin Allergy Severe HIVES/WHEEX Verified 12/14/22 08:38 ING sulfamethoxazole Allergy Severe ANAPHYLAXIS Verified 12/14/22 08:38 trimethoprim Allergy Severe ANAPHYLAXIS Verified 12/14/22 08:38 amoxicillin Allergy Intermediate RASH/HIVES Verified 12/14/22 08:38 Penicillins Allergy Intermediate RASH Verified 12/14/22 08:38 adhesive Allergy Mild Rash Verified 12/14/22 08:38 morphine Allergy Mild RASH Verified 12/14/22 08:38 cefaclor Allergy Unknown SERUM Verified 12/14/22 08:38 SICKNESS egg yolk Allergy Anxiety Verified 12/14/22 08:38 tree nut Allergy Anxiety Verified 12/14/22 08:38 metoclopramide AdvReac Severe Anxiety Verified 12/14/22 08:38 Review of Systems Review of Systems: All systems reviewed & are unremarkable except as noted in HPI and below Constitutional: Constitutional: Reports as per HPI, Reports no additional constitutional complaints, Reports fatigue and Reports weakness Eyes: Eyes: Reports as per HPI and Reports change in vision Comments: right-sided ptosis with blurred vision on the right side ENT: Reports system reviewed and no additional complaints, except as documented and Reports as per HPI Cardiovascular: Cardiovascular: Reports as per HPI and Reports no additional cardiovascular complaints Respiratory: Respiratory: Reports as per HPI and Reports no additional respiratory complaints Gastrointestinal: Gastrointestinal: Reports as per HPI and Reports no additional gastrointestinal complaints Genitourinary: Genitourinary: Reports no additional female genitourinary complaints and Reports as per HPI Musculoskeletal: Musculoskeletal: Reports no additional musculoskeletal complaints and Reports as per HPI Integumentary/Breasts: Skin/Breast: Reports system reviewed and no additional complaints, except as docu and Reports as per HPI Neurologic: Reports system reviewed and no additional complaints, except as documented, Reports as per HPI, Reports focal weakness and Reports numbness Psychiatric: Psychiatric: Reports no additional psychiatric complaints and Reports as per HPI Endocrine: Endocrine: Reports no additional endocrine complaints
[2023-01-10 19:48] LABS: Basophils Absolute Auto 0.05 K/mm3 (0.00-0.10); Basophils Percent Auto 0.6 % (0.0-1.0); Eosinophils Absolute Auto 0.16 K/mm3 (0.02-0.50); Eosinophils Percent Auto 1.8 % (1.0-6.0); Hematocrit 39.5 % (35.0-49.0); Hemoglobin 13.3 g/dL (12.0-15.0); Immature Granulocyte Absolute 0.02 K/mm3 (0.00-0.00); Immature Granulocyte Percent A 0.2 % (0.0-0.0); Lymphocytes Absolute Auto 2.95 K/mm3 (1.10-4.50); Lymphocytes Percent Auto 33.3 % (18.0-42.0); Mean Corpuscular HGB Conc 33.7 g/dL (32.0-36.0); Mean Corpuscular Hemoglobin 30.6 pg (27.0-31.0); Mean Corpuscular Volume 90.8 fL (78.0-102.0); Monocytes Absolute Auto 0.38 K/mm3 (0.10-0.90); Monocytes Percent Auto 4.3 % (2.0-11.0); Neutrophils Absolute Auto 5.3 K/mm3 (1.7-7.2); Neutrophils Percent Auto 59.8 % (50.0-70.0); Platelet Count Result 291 K/mm3 (150-420); Red Blood Count 4.35 M/mm3 (4.20-5.40); White Blood Count 8.9 K/mm3 (4.8-10.8)
[2023-01-10 19:59] VITALS: PULSE 115; RESP 20; TEMP 37.6; O2SAT 98
[2023-01-10 20:01] LABS: INR 0.9; Partial Thromboplastin Time 25.4 SEC (23.90-30.70)
[2023-01-10 20:08] LABS: Lactic Acid Reflex 0.9 mmol/L (0.4-2.0)
[2023-01-10 20:12] LABS: Alanine Aminotransferase 40 U/L (14-59); Albumin Level 3.7 g/dL (3.4-5.0); Alkaline Phosphatase 93 U/L (46-116); Anion Gap 9 mmol/L (8-16); Aspartate Amino Transferase 18 U/L (15-37); Bilirubin,Total 0.3 mg/dL (0.00-1.00); Blood Urea Nitrogen 13 mg/dL (7-18); Carbon Dioxide 26 mmol/L (21-32); Chloride 101 mmol/L (98-108); Estimated CRCL calculation 75 ml/min; Estimated Glomerular Filt Rate > 60; Glucose 348 mg/dL (70-99); NT Pro B Type Natriuretic Pept 25 pg/mL (0-125); Osmolality Calculated 296 mOsm/kg (285-295); Potassium 4.4 mmol/L (3.5-5.1); Sodium 136 mmol/L (136-145); Thyroid Stimulating Hormone 0.82 uIU/mL (0.36-3.74); Total Protein 7.2 g/dL (6.4-8.2); Troponin I < 4.0 ng/L (0.00-60.4)
--- NOTE | 2023-01-10 20:12 | PC.NURSE ---
[facility] accepted pt, ETA 17 mins.
[2023-01-10 20:16] LABS: Pregnancy On Board Control Positive; Urine Pregnancy Test Negative
[2023-01-10] MEDS: INSULIN HUMAN REGULAR (*BKC) 1,000 UNITS/10 ML VIAL 8 UNITS SUB-Q (20:25)
--- NOTE | 2023-01-10 21:12 | PC.NURSE ---
Over head paged stat stroke at 1928, Md Morin reports NIHSS of six. pt to be transferred to [facility]. pt transported by [facility] to [facility] ER. [facility] in ER at 2030 and out of the ER at 2044. Nurse to Nurse report with [facility] RN Max at 2115.
[2023-01-10 21:19] VITALS: BP 119/80; PULSE 93; RESP 18; TEMP 37.1; O2SAT 98
[2023-01-11 19:22] LABS: Glucose Point of Care 322 mg/dl (65-105)
== END 2023-01-10 21:22 | disposition short-term general hospital (02) ==
PROVIDERS: Emergency Provider Internal Medicine Critical Care Medicine; PCP Internal Medicine
DX: I63.9 Cerebral infarction, unspecified (principal); E11.65 Type 2 diabetes mellitus with hyperglycemia; F41.9 Anxiety disorder, unspecified; E78.5 Hyperlipidemia, unspecified
CPT/HCPCS: 36415; 37195; 70450; 80053; 81025; 82948; 83605; 83880; 84443; 84484; 85025; 85610; 85730; 93005; 96374; 99285; J1815; J2997

== ENCOUNTER 2023-01-19 09:30 | Outpatient (CLI) | payer OTHER, BC, SELFPAY ==
--- NOTE | ~2023-01-19 | CT_ITS ---
EXAMINATION: CT soft tissue neck w con DATE: 01/19/2023 10:21 INDICATION: Right neck lymphadenopathy. TECHNIQUE: Computed tomography (CT) of the neck was performed with 75 mL Omnipaque-350 intravenous co ntrast. Automated exposure control and iterative reconstruction technique were employed. The dose-ken gth product was 376.14 mGy-cm. COMPARISON: None FINDINGS: A skin marker overlies right neck. There is no abnormal mass in this area. There are no pat hologically enlarged lymph nodes. The cervical carotid arteries are normal. There is mild cervical sp ondylosis. The mastoid air cells are normal. There is mild cervical spondylosis. IMPRESSION: 1. No abnormal neck mass or lymphadenopathy. Reviewed, dictated and finalized at location A.
== END 2023-01-19 09:31 | disposition home or self-care (01) ==
LOC: CHSIMG 09:35
PROVIDERS: PCP Internal Medicine; Visit Provider Internal Medicine
DX: R59.0 Localized enlarged lymph nodes (principal)
CPT/HCPCS: 70491; Q9967

== ENCOUNTER 2023-03-05 14:33 | Outpatient (CLI) | payer OTHER, BC, SELFPAY ==
--- NOTE | ~2023-03-05 | US_ITS ---
EXAMINATION: US pelvic complete w TV DATE: 03/05/2023 15:23 INDICATION: Continual bleeding. Endometriosis. Comparison:Ultrasound dated 01/19/2022 TECHNIQUE: Multiple transabdominal and endovaginal sonographic images of the pelvis performed. FINDINGS: The uterus measures 10.2 x 5 x 5.3 cm. The endometrial complex measures 1.9 cm. The right ovary measures 4.8 x 3.3 x 2.8 cm and the left ovary measures 3.2 x 2.7 x 1.3 cm. There is a 2.1 cm right ovarian cyst. There are small follicles in each ovary. Normal doppler signal in both o varies. There is no free fluid in the pelvis. There are no abnormal masses seen on either side. IMPRESSION: 1. Enlarged uterus with endometrial thickening measuring 1.9 cm. 2: Right ovarian cyst measuring 2.1 cm. Reviewed, dictated and finalized at location B.
== END 2023-03-05 14:34 | disposition home or self-care (01) ==
LOC: CHSIMG 14:34
PROVIDERS: PCP Internal Medicine
DX: N93.9 Abnormal uterine and vaginal bleeding, unspecified (principal); R93.89 Abnormal findings on diagnostic imaging of other specified body structures; N83.201 Unspecified ovarian cyst, right side
CPT/HCPCS: 76830; 76856

== ENCOUNTER 2023-03-13 19:11 | Emergency (ER) | payer OTHER, BC, SELFPAY ==
[2023-03-13 19:11] VITALS: BP 118/86; PULSE 76; RESP 16; TEMP 36.8; O2SAT 99
--- NOTE | 2023-03-13 19:21 | ED.ABDPAIN ---
HPI - Abdominal Pain General Stated Complaint: vomiting; abdominal pain Time Seen by Provider: 03/13/23 19:21 Related Data Home Medications Medication Instructions Recorded Confirmed albuterol sulfate 90 mcg/actuation 2 puff inhalation Q4H PRN 10/30/19 01/10/23 aerosol inhaler (ProAir HFA) Shortness Of Breath Or Wheezing budesonide-formoterol HFA 160 2 puff inhalation Q12H 10/30/19 01/10/23 mcg-4.5 mcg/actuation aerosol inhaler (Symbicort) cetirizine 10 mg tablet (All Day 10 mg PO HS 10/30/19 01/10/23 Allergy (cetirizine)) montelukast 10 mg tablet 10 mg PO HS 10/30/19 01/10/23 venlafaxine 75 mg tablet 150 mg PO DAILY 12/14/22 01/10/23 Allergies Allergy/AdvReac Type Severity Reaction Status Date / Time Cephalosporins Allergy Severe KIDNEYS Verified 01/10/23 21:05 SHUT DOWN nitrofurantoin Allergy Severe HIVES/WHEEX Verified 01/10/23 21:05 ING sulfamethoxazole Allergy Severe ANAPHYLAXIS Verified 01/10/23 21:05 trimethoprim Allergy Severe ANAPHYLAXIS Verified 01/10/23 21:05 amoxicillin Allergy Intermediate RASH/HIVES Verified 01/10/23 21:05 Penicillins Allergy Intermediate RASH Verified 01/10/23 21:05 adhesive Allergy Mild Rash Verified 01/10/23 21:05 morphine Allergy Mild RASH Verified 01/10/23 21:05 cefaclor Allergy Unknown SERUM Verified 01/10/23 21:05 SICKNESS egg yolk Allergy Anxiety Verified 01/10/23 21:05 tree nut Allergy Anxiety Verified 01/10/23 21:05 metoclopramide AdvReac Severe Anxiety Verified 01/10/23 21:05 [facility] Past Medical History Medical History Anxiety Asthma delivery delivered Depression Dyslipidemia Endometriosis High blood pressure History of gastroesophageal reflux (GERD) Type 2 diabetes mellitus with hyperglycemia Urine incontinence Surgical History Surgical History H/O dilation and curettage multiple H/O gastric sleeve 01/2021 H/O hand surgery x3, right hand, carpal tunnel release, trigger finger History of bladder surgery repair History of cholecystectomy History of elbow surgery right Previous section x2 Family History Family History Father Diabetes mellitus Social History Social History Smoking status: Never smoker Second hand tobacco smoke exposure: No Alcohol intake: current Alcohol use details: maybe 1-2 times per year Substance use: never Living arrangements: with family Additional living arrangements comments: lives with 2 daughter (2 and 12 yrs old) and her Occupation/Education: occupation Additional occupation/education comments: works at [employer] Gender identity (if verbalized by the patient): Female Sexual Orientation (if Verbalized by the Patient): Straight or Heterosexual Spiritual care concerns: No Agree to blood products: Yes Discharge Plan Discharge Prescriptions: No Action ipratropium-albuterol 0.5 mg-3 mg(2.5 mg base)/3 mL Solution For Nebulization 3 ml inhalation BID PRN (Reason: Severe Asthma) Qty: 1 0RF (DME) Dexcom G7 Sensor Device See Rx Instructions .ROUTE .MEDSUPPLY Qty: 9 3RF Rx Instructions: Use to monitor glcuose (DME) Dexcom G7 Ceramist Misc See Rx Instructions .ROUTE .MEDSUPPLY Qty: 1 0RF Rx Instructions: Will use smartphone Ozempic 2 mg/dose (8 mg/3 mL) pen injector 2 mg subcut WEEKLY 90 Days Qty: 9 0RF cetirizine [All Day Allergy (cetirizine)] 10 mg tablet 10 mg PO HS montelukast 10 mg tablet 10 mg PO HS budesonide-formoterol [Symbicort] 160-4.5 mcg/actuation HFA aerosol inhaler 2 puff INHALATION Q12H albuterol sulfate [ProAir HFA] 90 mcg/actuation HFA aerosol inhaler 2 puff INHALATION Q4H PRN (Reason: Shortness Of Breath Or Wheezing) venlafaxine 75 mg ta
--- NOTE | 2023-03-13 19:54 | ED.NAVMDI ---
HPI - Nausea/Vomiting/Diarrhea General Chief complaint: Abdominal Pain Stated complaint: vomiting; abdominal pain Time Seen by Provider: 03/13/23 19:21 Source: patient and RN notes reviewed Mode of arrival: ambulatory Limitations: no limitations History of Present Illness HPI Narrative: patient went to see her primary care physician regarding same complaint today. She was prescribed some Compazine but when she got home tried to take it she said she threw it up. She has having difficulty keeping anything down. She says she feels weak all over. She had a fever last evening 102. She denies any urinary symptoms. She says she has been having some abdominal pain for about 4 weeks and recently had a uterine biopsy to look for uterine cancer. She said the biopsy site is not hurting her. MD elicited complaint: nausea, vomiting and diarrhea Onset (ago): day(s) (3) Description of vomiting: bilious Description of diarrhea: mucus Associated nausea: Yes Associated abdominal pain: No Exacerbating factors: eating Relieving factors: none Associated symptoms: fever/chills and malaise Related Data Home Medications Medication Instructions Recorded Confirmed albuterol sulfate 90 mcg/actuation 2 puff inhalation Q4H PRN 10/30/19 01/10/23 aerosol inhaler (ProAir HFA) Shortness Of Breath Or Wheezing budesonide-formoterol HFA 160 2 puff inhalation Q12H 10/30/19 01/10/23 mcg-4.5 mcg/actuation aerosol inhaler (Symbicort) cetirizine 10 mg tablet (All Day 10 mg PO HS 10/30/19 01/10/23 Allergy (cetirizine)) montelukast 10 mg tablet 10 mg PO HS 10/30/19 01/10/23 venlafaxine 75 mg tablet 150 mg PO DAILY 12/14/22 01/10/23 Allergies Allergy/AdvReac Type Severity Reaction Status Date / Time Cephalosporins Allergy Severe KIDNEYS Verified 03/13/23 19:24 SHUT DOWN nitrofurantoin Allergy Severe HIVES/WHEEX Verified 03/13/23 19:24 ING sulfamethoxazole Allergy Severe ANAPHYLAXIS Verified 03/13/23 19:24 trimethoprim Allergy Severe ANAPHYLAXIS Verified 03/13/23 19:24 amoxicillin Allergy Intermediate RASH/HIVES Verified 03/13/23 19:24 Penicillins Allergy Intermediate RASH Verified 03/13/23 19:24 adhesive Allergy Mild Rash Verified 03/13/23 19:24 morphine Allergy Mild RASH Verified 03/13/23 19:24 cefaclor Allergy Unknown SERUM Verified 03/13/23 19:24 SICKNESS egg yolk Allergy Anxiety Verified 03/13/23 19:24 tree nut Allergy Anxiety Verified 03/13/23 19:24 metoclopramide AdvReac Severe Anxiety Verified 03/13/23 19:24 PMFSH Past Medical History Medical History Anxiety Asthma delivery delivered Depression Dyslipidemia Endometriosis High blood pressure History of gastroesophageal reflux (GERD) Type 2 diabetes mellitus with hyperglycemia Urine incontinence Surgical History Surgical History H/O dilation and curettage multiple H/O gastric sleeve 01/2021 H/O hand surgery x3, right hand, carpal tunnel release, trigger finger History of bladder surgery repair History of cholecystectomy History of elbow surgery right Previous section x2 Family History Family History Father Diabetes mellitus Social History Social History Smoking status: Never smoker Second hand tobacco smoke exposure: No Alcohol intake: current Alcohol use details: maybe 1-2 times per year Substance use: never Living arrangements: with family Additional living arrangements comments: lives with 2 daughter (2 and 12 yrs old) and her Occupation/Education: occupation Additional occupation/education comments: works at [employer] Gender identity (if verbalized by the patient): Female Sexual Orientation (if Verbalized by the Patient): Straight or Heterosexual Spiritual care concerns:
--- NOTE | 2023-03-13 19:56 | PC.NURSE ---
chaperoned Dr. Llamas w/ initial assessment
[2023-03-13 20:11] LABS: Basophils Absolute Auto 0.05 K/mm3 (0.00-0.10); Basophils Percent Auto 0.6 % (0.0-1.0); Eosinophils Absolute Auto 0.06 K/mm3 (0.02-0.50); Eosinophils Percent Auto 0.7 % (1.0-6.0); Hematocrit 36.5 % (35.0-49.0); Hemoglobin 12.5 g/dL (12.0-15.0); Immature Granulocyte Absolute 0.02 K/mm3 (0.00-0.00); Immature Granulocyte Percent A 0.2 % (0.0-0.0); Lymphocytes Absolute Auto 3.22 K/mm3 (1.10-4.50); Lymphocytes Percent Auto 37.1 % (18.0-42.0); Mean Corpuscular HGB Conc 34.2 g/dL (32.0-36.0); Mean Corpuscular Hemoglobin 30.7 pg (27.0-31.0); Mean Corpuscular Volume 89.7 fL (78.0-102.0); Mean Platelet Volume 8.7 fl (9.2-11.8); Monocytes Absolute Auto 0.43 K/mm3 (0.10-0.90); Neutrophils Absolute Auto 4.9 K/mm3 (1.7-7.2); Neutrophils Percent Auto 56.4 % (50.0-70.0); Platelet Count Result 323 K/mm3 (150-420); Red Blood Count 4.07 M/mm3 (4.20-5.40); Red Cell Distribution Width 11.9 % (11.6-14.4); White Blood Count 8.7 K/mm3 (4.8-10.8)
[2023-03-13 20:26] LABS: Alanine Aminotransferase 34 U/L (14-59); Albumin Level 3.6 g/dL (3.4-5.0); Alkaline Phosphatase 69 U/L (46-116); Anion Gap 7 mmol/L (8-16); Aspartate Amino Transferase 17 U/L (15-37); Bilirubin,Total 0.5 mg/dL (0.00-1.00); Blood Urea Nitrogen 11 mg/dL (7-18); CRP < 0.5 mg/dL (0.0-0.9); Calcium 8.9 mg/dL (8.5-10.1); Carbon Dioxide 28 mmol/L (21-32); Chloride 105 mmol/L (98-108); Estimated CRCL calculation 85 ml/min; Estimated Glomerular Filt Rate > 60; Glucose 116 mg/dL (70-99); Magnesium 1.8 mg/dL (1.8-2.4); Osmolality Calculated 290 mOsm/kg (285-295); Sodium 140 mmol/L (136-145); Total Protein 6.9 g/dL (6.4-8.2)
[2023-03-13 20:30] LABS: Appearance Urine Clear (Clear); Bilirubin Urine Negative (Negative); Blood Urine Negative (Negative); Color Urine Light Yellow (Yellow); Glucose Urine UA Negative (Negative); Ketones Urine 1+ (Negative); Leukocyte Esterase Ur Negative LEU/UL (Negative); Nitrate Urine Negative (Negative); Protein Urine Negative (Negative)
[2023-03-13 20:32] LABS: Add Urine Microscopic? YES; Bacteria Urine Trace /hpf; Mucus Urine Moderate /lpf; RBC Urine 0-2 /hpf (0-2); Squamous Epithelial Cell Urine Few /hpf (Few); WBC Urine 0-3 /hpf (0-3)
[2023-03-13 20:38] LABS: Influenza A QL RT-PCR Negative (Negative); Influenza B QL RT-PCR Negative (Negative); SARS-CoV-2 RNA PCR Negative (Negative)
[2023-03-13] MEDS: ONDANSETRON HCL ODT 4 MG TABLET PO (20:48)
--- NOTE | 2023-03-13 21:02 | PC.NURSE ---
patient was able to keep down zofran, states it is helping with nausea
[2023-03-13 21:03] VITALS: BP 125/81; PULSE 92; RESP 16; TEMP 36.6; O2SAT 100
== END 2023-03-13 21:04 | disposition home or self-care (01) ==
PROVIDERS: Emergency Provider Emergency Medicine; PCP Internal Medicine
DX: K52.9 Noninfective gastroenteritis and colitis, unspecified (principal); E78.5 Hyperlipidemia, unspecified; E11.9 Type 2 diabetes mellitus without complications; Z20.822 Contact with and (suspected) exposure to COVID-19
CPT/HCPCS: 36415; 80053; 81001; 83735; 85025; 86140; 87636; 99283; A9270

== ENCOUNTER 2023-04-25 11:17 | Outpatient (CLI) | payer OTHER, BC, SELFPAY ==
[2023-04-25 11:32] LABS: Appearance Urine Clear (Clear); Bilirubin Urine 2+ (Negative); Blood Urine 3+ (Negative); Glucose Urine UA 1+ (Negative); Ketones Urine Trace (Negative); Leukocyte Esterase Ur 2+ (Negative); Nitrate Urine Positive (Negative); Protein Urine 3+ (Negative); Specific Grav Ur 1.015 (1.010-1.020); Urobilinogen Urine >=8.0 mg/dL (0.2-1.0)
[2023-04-25 11:39] LABS: Add Urine Microscopic? YES; Bacteria Urine 2+ /hpf; Color Urine Dark Orange (Yellow); RBC Urine 21-50 /hpf (0-2); Squamous Epithelial Cell Urine Few /hpf (Few); WBC Urine 16-20 /hpf (0-3)
== END 2023-04-25 11:18 | disposition home or self-care (01) ==
PROVIDERS: PCP Internal Medicine; Visit Provider Obstetrics & Gynecology Gynecologic Oncology
DX: R31.9 Hematuria, unspecified (principal); R39.15 Urgency of urination
CPT/HCPCS: 81001; 87086

== ENCOUNTER 2023-06-18 22:20 | Emergency (ER) | payer OTHER, SELFPAY ==
--- NOTE | ~2023-06-18 | CT_ITS ---
EXAMINATION: CT abdomen pelvis wo con DATE: 06/18/2023 23:21 INDICATION: Abdominal pain. Nausea and vomiting. TECHNIQUE: Computed tomography (CT) of the abdomen and pelvis was performed without intravenous contr ast. Automated exposure control and iterative reconstruction technique were employed. The dose-length product was 408.30 mGy-cm. COMPARISON: CT abdomen and pelvis 11/11/2019 FINDINGS: The visualized portions of the lung bases are clear without pneumonia or pleural effusion. The heart size is normal. No pleural effusion. Calcified right hilar lymph nodes are consistent with old granulomatous disease. The liver and spleen are normal. There are changes of cholecystectomy. The re are changes of gastric sleeve procedure. The adrenal glands and kidneys are normal. There is no ur olithiasis. There are no dilated loops of bowel. The appendix is normal. There are no pathologically enlarged lymph nodes. There is no free intraperitoneal fluid. There is mild lumbar spondylosis. IMPRESSION: 1. No etiology for the patient's symptoms. Reviewed, dictated and finalized at location E. [facility]
[2023-06-18 22:48] VITALS: BP 135/89; PULSE 114; RESP 18; TEMP 35.6; O2SAT 98
--- NOTE | 2023-06-18 23:16 | ED.GENADULT ---
HPI - General Adult General Chief complaint: Nausea/Vomiting/Diarrhea Stated complaint: throwing up Time Seen by Provider: 06/18/23 22:44 History of Present Illness HPI narrative: Pt presents to ED due to intractible nausea and vomiting started today. Had waterry diarrhea and diffuse abdominal pain. She had total hysterectomy on May 04, 2023. She is having chills. Related Data Home Medications Medication Instructions Recorded Confirmed albuterol sulfate 90 mcg/actuation 2 puff inhalation Q4H PRN 10/30/19 01/10/23 aerosol inhaler (ProAir HFA) Shortness Of Breath Or Wheezing budesonide-formoterol HFA 160 2 puff inhalation Q12H 10/30/19 01/10/23 mcg-4.5 mcg/actuation aerosol inhaler (Symbicort) cetirizine 10 mg tablet (All Day 10 mg PO HS 10/30/19 01/10/23 Allergy (cetirizine)) montelukast 10 mg tablet 10 mg PO HS 10/30/19 01/10/23 venlafaxine 75 mg tablet 150 mg PO DAILY 12/14/22 01/10/23 Allergies Allergy/AdvReac Type Severity Reaction Status Date / Time Cephalosporins Allergy Severe KIDNEYS Verified 06/18/23 22:57 SHUT DOWN nitrofurantoin Allergy Severe HIVES/WHEEX Verified 06/18/23 22:57 ING sulfamethoxazole Allergy Severe ANAPHYLAXIS Verified 06/18/23 22:57 trimethoprim Allergy Severe ANAPHYLAXIS Verified 06/18/23 22:57 amoxicillin Allergy Intermediate RASH/HIVES Verified 06/18/23 22:57 Penicillins Allergy Intermediate RASH Verified 06/18/23 22:57 adhesive Allergy Mild Rash Verified 06/18/23 22:57 morphine Allergy Mild RASH Verified 06/18/23 22:57 cefaclor Allergy Unknown SERUM Verified 06/18/23 22:57 SICKNESS egg yolk Allergy Anxiety Verified 06/18/23 22:57 tree nut Allergy Anxiety Verified 06/18/23 22:57 metoclopramide AdvReac Severe Anxiety Verified 06/18/23 22:57 Review of Systems Review of Systems: All systems reviewed & are unremarkable except as noted in HPI and below PMFSH Past Medical History Medical History Anxiety Asthma delivery delivered Depression Dyslipidemia Endometriosis High blood pressure History of gastroesophageal reflux (GERD) Type 2 diabetes mellitus with hyperglycemia Urine incontinence Surgical History Surgical History H/O dilation and curettage multiple H/O gastric sleeve 01/2021 H/O hand surgery x3, right hand, carpal tunnel release, trigger finger History of bladder surgery repair History of cholecystectomy History of elbow surgery right Previous section x2 Family History Family History Father Diabetes mellitus Social History Social History Smoking status: Never smoker Second hand tobacco smoke exposure: No Alcohol intake: current Alcohol use details: maybe 1-2 times per year Substance use: never Living arrangements: with family Additional living arrangements comments: lives with 2 daughter (2 and 12 yrs old) and her Occupation/Education: occupation Additional occupation/education comments: works at [employer] Gender identity (if verbalized by the patient): Female Sexual Orientation (if Verbalized by the Patient): Straight or Heterosexual Spiritual care concerns: No Agree to blood products: Yes Exam Const: General: alert, diaphoretic and ill appearing Orientation/consciousness: patient oriented x3 HENMT: Head: normal to inspection Resp: Effort & Inspection: normal respiratory effort Auscultation: clear to auscultation bilaterally Cardio: Rate: tachycardic Rhythm: regular rhythm GI: Inspection: distended GI Palp: Yes Tenderness to palpation present (GI) Auscultation: Hypoactive bowel sounds present Skin: General skin exam: normal color Rashes: no rashes Wounds: no wounds Neuro: General: patient oriented x3 Course Vital Signs
[2023-06-18] MEDS: SODIUM CHLORIDE 0.9% IV 1,000 ML 999 ML IV CONT (23:27)
[2023-06-18] MEDS: ONDANSETRON INJ 4 MG/2 ML VIAL IV PUSH (23:27)
--- NOTE | 2023-06-18 23:28 | PC.NURSE ---
IVF infusing. patient reports she is not vomiting but is now having dry heaves and pain remains. ERP updated, awaiting orders.
[2023-06-18 23:37] LABS: Basophils Absolute Auto 0.05 K/mm3 (0.00-0.10); Basophils Percent Auto 0.3 % (0.0-1.0); Eosinophils Absolute Auto 0.17 K/mm3 (0.02-0.50); Hematocrit 45.9 % (35.0-49.0); Hemoglobin 15.3 g/dL (12.0-15.0); Immature Granulocyte Absolute 0.05 K/mm3 (0.00-0.00); Immature Granulocyte Percent A 0.3 % (0.0-0.0); Lymphocytes Absolute Auto 1.07 K/mm3 (1.10-4.50); Lymphocytes Percent Auto 6.5 % (18.0-42.0); Mean Corpuscular HGB Conc 33.3 g/dL (32.0-36.0); Mean Corpuscular Hemoglobin 30.1 pg (27.0-31.0); Mean Corpuscular Volume 90.2 fL (78.0-102.0); Mean Platelet Volume 9.1 fl (9.2-11.8); Monocytes Absolute Auto 1.19 K/mm3 (0.10-0.90); Monocytes Percent Auto 7.2 % (2.0-11.0); Neutrophils Absolute Auto 13.9 K/mm3 (1.7-7.2); Neutrophils Percent Auto 84.7 % (50.0-70.0); Platelet Count Result 355 K/mm3 (150-420); Red Blood Count 5.09 M/mm3 (4.20-5.40); Red Cell Distribution Width 11.5 % (11.6-14.4); White Blood Count 16.4 K/mm3 (4.8-10.8)
[2023-06-18 23:58] LABS: Lactic Acid Reflex 1.5 mmol/L (0.4-2.0)
[2023-06-19 00:06] LABS: Alanine Aminotransferase 51 U/L (14-59); Albumin Level 4.2 g/dL (3.4-5.0); Alkaline Phosphatase 92 U/L (46-116); Anion Gap 8 mmol/L (8-16); Aspartate Amino Transferase 30 U/L (15-37); Bilirubin,Total 0.5 mg/dL (0.00-1.00); Blood Urea Nitrogen 24 mg/dL (7-18); Calcium 8.9 mg/dL (8.5-10.1); Carbon Dioxide 28 mmol/L (21-32); Chloride 100 mmol/L (98-108); Estimated Glomerular Filt Rate > 60; Glucose 292 mg/dL (70-99); Lipase 50 U/L (16-77); Osmolality Calculated 297 mOsm/kg (285-295); Potassium 3.9 mmol/L (3.5-5.1); Sodium 136 mmol/L (136-145); Total Protein 8.1 g/dL (6.4-8.2)
[2023-06-19 00:07] LABS: Beta HCG Quantitative < 1.00 mIU/mL (0-6)
[2023-06-19 00:10] VITALS: TEMP 37
[2023-06-19] MEDS: PROCHLORPERAZINE EDISYLATE 10 MG/2 ML VIAL IV PUSH (00:33)
--- NOTE | 2023-06-19 01:03 | PC.NURSE ---
patient ambulatory to bathroom without difficulty at this time.
[2023-06-19 01:08] VITALS: BP 114/80; PULSE 90; RESP 16; TEMP 37.1; O2SAT 98
--- NOTE | 2023-06-19 01:09 | PC.NURSE ---
urine specimen sent to lab. patient awaiting results. sig other at bedside. lights remain dimmed for patient comfort, nad. vss. call light within reach.
[2023-06-19 01:11] LABS: Appearance Urine Clear (Clear); Bilirubin Urine 1+ (Negative); Blood Urine Trace-Intact (Negative); Color Urine Yellow (Yellow); Glucose Urine UA 2+ (Negative); Ketones Urine 1+ (Negative); Leukocyte Esterase Ur Negative LEU/UL (Negative); Nitrate Urine Negative (Negative); Protein Urine Trace (Negative); Specific Grav Ur >= 1.030 (1.010-1.020); Urobilinogen Urine 0.2 mg/dL (0.2-1.0)
[2023-06-19 01:17] LABS: Add Urine Microscopic? YES; Bacteria Urine 1+ /hpf; Mucus Urine Few /lpf; RBC Urine 0-2 /hpf (0-2); Squamous Epithelial Cell Urine Few /hpf (Few); WBC Urine 0-3 /hpf (0-3)
[2023-06-19 01:20] LABS: Amphetamine Screen Urine Negative (Negative); Barbiturate Screen Urine Negative (Negative); Benzodiazepines Screen Urine Negative (Negative); Cannabinoid Screen Urine Positive (Negative); Cocaine Screen Urine Negative (Negative); Methadone Screen Urine Negative (Negative); Opiate Screen Urine Negative (Negative); Phencyclidine Screen Urine Negative (Negative)
== END 2023-06-19 01:50 | disposition home or self-care (01) ==
PROVIDERS: Emergency Provider Emergency Medicine; PCP Internal Medicine
DX: K52.9 Noninfective gastroenteritis and colitis, unspecified (principal); E78.5 Hyperlipidemia, unspecified; E11.9 Type 2 diabetes mellitus without complications; R10.9 Unspecified abdominal pain; F12.929 Cannabis use, unspecified with intoxication, unspecified; Z79.899 Other long term (current) drug therapy; Z90.49 Acquired absence of other specified parts of digestive tract
CPT/HCPCS: 36415; 74176; 80053; 80307; 81001; 83605; 83690; 84702; 85025; 96361; 96374; 99284; J0780; J2405; J7030

== ENCOUNTER 2023-12-26 17:04 | Outpatient (CLI) | payer OTHER, SELFPAY ==
--- NOTE | ~2023-12-26 | CT_ITS ---
CT abdomen pelvis wo con Ordering provider: Ander Spencer MD History: . left flank pain, hematuria,X3DAYS . Comparison: June 18, 2023 Technique: CT abdomen without IV and without oral contrast. Reduction technique utilized. Radiation reduction technique utilized. Findings: VISUALIZED LOWER CHEST: Normal. UPPER ABDOMINAL ORGANS: Liver: Normal. Gallbladder: Status post cholecystectomy. Spleen: Normal. Stomach/duodenum: Postoperative changes in the stomach. Pancreas: Normal. Adrenals: Normal. Kidneys: Normal. No definite ureteric stones. Urinary bladder: Normal. VISUALIZED BOWEL AND MESENTERY: Narrowing is seen in the rectosigmoid most likely spastic. No evidence of diverticulitis. No evidence of appendicitis. The bowel is otherwise normal. No free air or free fluid. No mesenteric lymphadenop athy. RETROPERITONEUM: Normal aorta. No retroperitoneal lymphadenopathy. MUSCULOSKELETAL: The superficial soft tissues are normal. Normal spine. IMPRESSION: No definite acute abdominal process. No renal stones seen. Reviewed, dictated and finalized at location A.
[2023-12-26 17:37] LABS: Basophils Absolute Auto 0.07 K/mm3 (0.00-0.10); Basophils Percent Auto 0.7 % (0.0-1.0); Hematocrit 38.3 % (35.0-49.0); Hemoglobin 12.5 g/dL (12.0-15.0); Immature Granulocyte Absolute 0.04 K/mm3 (0.00-0.00); Immature Granulocyte Percent A 0.4 % (0.0-0.0); Lymphocytes Absolute Auto 3.93 K/mm3 (1.10-4.50); Lymphocytes Percent Auto 39.2 % (18.0-42.0); Mean Corpuscular HGB Conc 32.6 g/dL (32-36); Mean Corpuscular Volume 88.9 fL (78.0-102.0); Mean Platelet Volume 9.1 fl (9.2-11.8); Monocytes Absolute Auto 0.53 K/mm3 (0.10-0.90); Monocytes Percent Auto 5.3 % (2.0-11.0); Neutrophils Absolute Auto 5.25 K/mm3 (1.70-7.20); Neutrophils Percent Auto 52.4 % (50.0-70.0); Platelet Count Result 347 K/mm3 (150-420); Red Blood Count 4.31 M/mm3 (4.20-5.40); Red Cell Distribution Width 12.1 % (11.6-14.4)
[2023-12-26 17:52] LABS: Alanine Aminotransferase 29 U/L (14-59); Albumin Level 3.6 g/dL (3.4-5.0); Alkaline Phosphatase 87 U/L (46-116); Anion Gap 7 mmol/L (4-12); Aspartate Amino Transferase 15 U/L (15-37); Bilirubin,Total 0.2 mg/dL (0.00-1.00); Blood Urea Nitrogen 14 mg/dL (7-18); Calcium 9.2 mg/dL (8.5-10.1); Carbon Dioxide 31 mmol/L (21-32); Chloride 102 mmol/L (98-108); Estimated Glomerular Filt Rate > 60; Glucose 135 mg/dL (70-99); Osmolality Calculated 292 mOsm/kg (285-295); Potassium 3.9 mmol/L (3.5-5.1); Sodium 140 mmol/L (136-145); Total Protein 7.2 g/dL (6.4-8.2)
== END 2023-12-26 17:05 | disposition home or self-care (01) ==
PROVIDERS: PCP Internal Medicine; Visit Provider Nurse Practitioner Family
DX: R31.29 Other microscopic hematuria (principal)
CPT/HCPCS: 36415; 74176; 80053; 85025

== ENCOUNTER 2024-01-11 13:24 | Outpatient (CLI) | payer BC, SELFPAY ==
--- NOTE | ~2024-01-11 | MM_ITS ---
EXAMINATION: MM screening roz BI w damion HISTORY: Screening mammogram, family history of breast cancer in her mother. TECHNIQUE: Craniocaudal and mediolateral oblique 3-D tomosynthesis images were obtained and synthetic 2-D images were generated. CAD analysis was submitted and interpreted. COMPARISON: No prior mammogram is available for comparison at this institution. BREAST PARENCHYMAL COMPOSITION:Dense: The breasts are extremely dense, which lowers the sensitivity o f mammography. FINDINGS: No suspicious mass, calcification, or architectural distortion are identified in either yfn ast to suggest malignancy. There has been no suspicious interval change. IMPRESSION: No mammographic evidence of malignancy. Recommend routine screening mammography in one year. BI-RADS Category 1: Negative Reviewed, dictated and finalized at location .
[2024-01-11 14:06] LABS: Basophils Absolute Auto 0.06 K/mm3 (0.00-0.10); Basophils Percent Auto 0.6 % (0.0-1.0); Eosinophils Absolute Auto 0.11 K/mm3 (0.02-0.50); Eosinophils Percent Auto 1.1 % (1.0-6.0); Hematocrit 37.7 % (35.0-49.0); Hemoglobin 12.5 g/dL (12.0-15.0); Immature Granulocyte Absolute 0.05 K/mm3 (0.00-0.00); Immature Granulocyte Percent A 0.5 % (0.0-0.0); Lymphocytes Percent Auto 36.6 % (18.0-42.0); Mean Corpuscular HGB Conc 33.2 g/dL (32-36); Mean Corpuscular Hemoglobin 29.7 pg (27.0-31.0); Mean Corpuscular Volume 89.5 fL (78.0-102.0); Neutrophils Absolute Auto 5.79 K/mm3 (1.70-7.20); Neutrophils Percent Auto 57.2 % (50.0-70.0); Platelet Count Result 320 K/mm3 (150-420); Red Blood Count 4.21 M/mm3 (4.20-5.40); Red Cell Distribution Width 12.5 % (11.6-14.4); White Blood Count 10.1 K/mm3 (4.8-10.8)
[2024-01-11 15:01] LABS: Alanine Aminotransferase 37 U/L (14-59); Albumin Level 3.6 g/dL (3.4-5.0); Alkaline Phosphatase 92 U/L (46-116); Anion Gap 6 mmol/L (4-12); Aspartate Amino Transferase 28 U/L (15-37); Bilirubin,Total 0.2 mg/dL (0.00-1.00); Blood Urea Nitrogen 12 mg/dL (7-18); Calcium 9.3 mg/dL (8.5-10.1); Carbon Dioxide 29 mmol/L (21-32); Chloride 102 mmol/L (98-108); Estimated Glomerular Filt Rate > 60; Glucose 239 mg/dL (70-99); Osmolality Calculated 291 mOsm/kg (285-295); Potassium 3.3 mmol/L (3.5-5.1); Sodium 137 mmol/L (136-145); Total Protein 6.9 g/dL (6.4-8.2)
== END 2024-01-11 13:25 | disposition home or self-care (01) ==
PROVIDERS: PCP Internal Medicine
DX: Z12.31 Encounter for screening mammogram for malignant neoplasm of breast (principal); L98.7 Excessive and redundant skin and subcutaneous tissue
CPT/HCPCS: 36415; 77063; 77067; 80053; 85025

== ENCOUNTER 2025-01-14 15:07 | Outpatient (CLI) | payer BC, SELFPAY ==
--- NOTE | ~2025-01-14 | MM_ITS ---
EXAMINATION: MM scrn roz implant BI w damion HISTORY: Screening mammogram, family history of breast cancer in her mother. TECHNIQUE: Craniocaudal and mediolateral oblique 3-D tomosynthesis images with implant displacement a nd synthetic 2-D images were generated. Craniocaudal and mediolateral oblique views of the breasts wi thout implant displacement were obtained using full field digital mammography. CAD analysis was submi tted and interpreted. COMPARISON: 01/11/2024 BREAST PARENCHYMAL COMPOSITION: The breasts are extremely dense, which lowers the sensitivity of mamm ography. FINDINGS: There is no evidence of suspicious mass, calcification, or architectural distortion to sugg est malignancy in either breast. There has been no suspicious interval change. IMPRESSION: No mammographic evidence of malignancy. Recommend routine screening mammography in one year. BI-RADS Category 1: Negative Reviewed, dictated and finalized at [facility].
--- OUTSIDE RECORDS SUMMARY | 2025-01-14 15:13 | XMS_ITS | Clinical Summary ---
Author Organization [facility] Address [address] [address] Phone Care Team Providers Care Nurse Wound Care Name Role Phone Ander Spencer MD Primary Care Provider [phone] Allergies Active Allergy Reactions Criticality Noted Date Comments Amoxicillin Hives High Reaction: HIVES Cefaclor Other (See comments) Reaction: OTHER REACTION, Metoclopramide Other (See comments) Low Reaction: SEE ALLERGY COMMEN, Morphine Hives High Reaction: HIVES Nitrofurantoin Wheezing High Reaction: WHEEZING, Penicillins Hives High Reaction: HIVES Sulfa (Sulfonamide Antibiotics) Anaphylaxis High Reaction: ANAPHYLAXIS Sulfamethoxazole-Trimet hoprim Anaphylaxis High Reaction: ANAPHYLAXIS Trimethoprim Anaphylaxis High Reaction: ANAPHYLAXIS Medications albuterol HFA (PROVENTIL HFA,VENTOLIN HFA,PROAIR HFA) 90 mcg/actuation inhaler Inhale 2 puffs 4 (four) times a day 01/09/2022 Active budesonide-form oteroL (SYMBICORT) 160-4.5 mcg/actuation inhaler Inhale 2 puffs 2 (two) times a day 09/12/2017 Active montelukast (SINGULAIR) 10 mg tablet 10/01/2022 Active cetirizine (ZyrTEC) 10 mg tablet TAKE 1 TABLET( 10 MG TOTAL) BY MOUTH DAILY 01/19/2022 Active atorvastatin (LIPITOR) 20 mg tablet Take 1 tablet (20 mg total) by mouth nightly at bedtime 09/29/2022 Active venlafaxine XR (EFFEXOR-XR) 150 mg 24 hr capsule Take 1 capsule (150 mg total) by mouth daily 08/08/2022 Active Ozempic 2 mg/dose (8 mg/3 mL) pen injector injection 10/01/2022 Active Active Problems Problem Noted Date Diagnosed Date Migraine headache 01/11/2023 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 01/11/2023 At high risk for bleeding after thrombolytic the rapy 01/11/2023 Morbid obesity with body mass index of 40.0-49.9 02/03/2021 S/P laparoscopic sleeve gastrectomy 02/03/2021 Moderate persistent asthma without complication 06/24/2019 NICOLE (obstructive sleep apnea) 06/24/2019 Tachycardia 02/26/2019 Hyperlipidemia 02/06/2018 CHF (congestive heart failure) 12/13/2017 Endometriosis 09/10/2017 Depression with anxiety 08/23/2015 Gastric reflux 08/23/2015 Unspecified asthma with (acute) exacerbation 02/2016 Surgical History Surgery Date Site/Laterality Comments ABDOMINAL SURGERY SECTION 07/15/2007 and 11/24/2017 BLADDER REPAIR 11/24/2017 HAND SURGERY Right broken finger/ pins CHOLECYSTECTOMY 04/15/2014 DILATION AND CURETTAGE OF UTERUS x 2 due to endometriosis 2008 & 2009 LAPAROSCOPY x 2 due to endometriosis 2011 & 2013 GASTRIC BYPASS 12/20/2020 Gastric Sleeve for weight loss Medical History Medical History Date Comments Asthma Diabetes mellitus (HCC) Pneumonia 08/03/2019 Due to Alegria Vi víctor/Hospitalized Social History Tobacco Use Types Packs/Day Years Used Date Smoking Tobacco: Never Smokeless Tobacco: Never Tobacco Cessation:Counseling Given: Not Answered Alcohol Use Standard Drinks/Week Comments Not Currently 0 (1 standard drink = 0.6 oz pur e alcohol) PHQ-2 Answer Date Recorded PHQ-2 Total Score 0 01/11/2023 Personal Safety Answer Date Recorded Getting School Help Needed Not on file 01/10 Comments No Sex and Gender Information Value Date Recorded Sex Assigned at Not on file Legal Sex Female 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 Gender Identity Not on file Sexual Orientation Not on file Obstetrics History Last Filed Vital Signs Vital Sign Reading Time Taken Comments Blood Pressure 108/64 01/11/2023 9:30 PM CDT Pulse 88 01/11/2023 9:30 PM CDT Temperature 37.6 C (99.7 F) 01/11/2023 9:44 PM CDT Respiratory Rate 18 01/11/2023 9:30 PM CDT Oxygen Saturation 98% 01/11/2023 9:30 PM CDT Inhaled Oxygen Concentration - - Weight 57.5 kg (126 lb 12.2 oz) 023 12:15 AM CDT Height 160 cm (5' 3) 01/11/2023 12:15 AM CDT Body Mass Index 22.46 01/11/2023 12:15 AM CDT Plan of Treatment Health Maintenance Due Date Last Done Comments Breast Cancer Screening-Mammogram 1984 Cervical Cancer Screening 1984 Hepatitis C Screening 1984 Varicella Vaccines (1 of 2 - 13+ 2-dose series) 1997 Hepatitis B Screening 2002 Regular Well Visit/Exam 18-64 2002 Pneumococcal vaccine <65 (1 of 2 - PCV) 2003 DTaP/Tdap/Td Vaccine (2 - Td or Tdap) 02/08/2021 02/08/2011 Depression Screening 01/11/2024 01/10/2023, 01/11/20 23 Influenza Vaccine (Season Ended) 2025 06/02/2020, 05/09/2019, 04/10/2018, Additional history exists HPV Vaccines Aged Out No longer eligi ble based on patient's age to complete this topic Insurance [employer]CIAL [employer]IC [employer] COVENTRY PPO BLUE [facility] CHOICE OOS AETNA COVENTRY PPO [employer] OOS Advance Directives For more information, please contact: [phone] * Full Code (Latest Code Status on File) Date Activated Date Inactivated Comments 01/10/2023 11:44 PM 01/12/2023 1:54 AM Care Teams Nurse Wound Care Relationship Specialty Start Date End Date Ander Spencer MD PCP - General Internal Medicine 01/10/23
--- OUTSIDE RECORDS SUMMARY | 2025-01-14 15:13 | XMS_ITS | Encounter Summary ---
Author Organization [facility] Address [address] [place] [address] Care Team Providers Care Date Puller Name Role Phone Ryan Ventura MD Primary Care Provider U Neel Chan MD Unavailable [phone] Ander Spencer MD Primary Care Provider [phone] Encounter Details Date Type Department Care Team (Late st Contact Info) Description 10/04/2020 [place] Message [facility] [address] [place] [address] [place], [facility] Provider RE:Surgery Social History Tobacco Use Types Packs/Day Years Used Date Smoking Tobacco: Never Smokeless Tobacco: Never Alcohol Use Standard Drinks/Week Comments Yes 0 (1 standard drink = 0.6 oz pur e alcohol) occ AUDIT-C Answer Date Recorded Frequency of Alcohol Consumption Never 08/02/2019 Average Number of Drinks Not on file 020 Frequency of Binge Drinking Not on file 07/16 PHQ-2 Answer Date Recorded PHQ-2 Score 0 11/01/2018 Education Answer Date Recorded What is the highest level of school you have completed or the highest degree you have received? 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 No / Unsure 10/06/2020 4:37 PM CDT documented as of this encounter Functional Status * RETIRED Are you deaf or do you have serious difficulty hearing Answer Date of Assessment Author Status No 08/02/2019 4:45 PM PLANT TENDER Activ e * RETIRED Are you blind or do you have serious difficulty seeing, even when wearing glasses? Answer Date of Assessment Author Status No 08/02/2019 4:45 PM PLANT TENDER Activ e * Do you have serious difficulty walking or climbing stairs? Answer Date of Assessment Author Status No 08/02/2019 4:45 PM PLANT TENDER Dorota Centeno RN Active * Do you have difficulty dressing or bathing? Answer Date of Assessment Author Status No 08/02/2019 4:45 PM PLANT TENDER Dorota Centeno RN Active * Because of a physical, mental, or emotional condition, do you have difficulty doing errands alone such as visiting a doctor's office or shopping? Answer Date of Assessment Author Status No 08/02/2019 4:45 PM PLANT TENDER Dorota Centeno RN Active documented as of this encounter Mental Status * Because of a physical, mental, or emotional condition, do you have serious difficulty concentrating, remembering, or making decisions? Answer Entry Date Author Status No 08/02/2019 4:45 PM PLANT TENDER Dorota Centeno RN Active documented in this encounter Progress Notes * Mehreen Patel RN - 10/05/2020 3:58 PM CDT Appointment made documented in this encounter Plan of Treatment Not on file documented as of this encounter Visit Diagnoses Not on filedocumented in this encounter Additional Health Concerns Infection Onset Date Last Indicated Resolved Time MRSA 02/21/2017 02/21/2017 documented as of this encounter Care Teams Date Puller Relationship Specialty Start Date End Date Ryan Ventura MD PCP - General INTERNAL MEDICINE 04/27/18 10/19/22 Ander Spencer MD [address] [place] [address] PCP - General INTERNAL MEDICINE 05/04/23 Neel Melvin MD [address] [place] [id number] Consulting Physician ALLERGY 04/27/23 documented as of this encounter
--- OUTSIDE RECORDS SUMMARY | 2025-01-14 15:13 | XMS_ITS | Clinical Summary ---
Author Organization [facility] Address [address] [place] [address] Care Team Providers Care Radio Electrician Name Role Phone Neel Melvin MD Unavailable [phone] Ander Spencer MD Primary Care Provider [phone] Allergies Active Allergy Reactions Criticality Noted Date Comments Amoxicillin Rash Low 05/03/2019 Cefaclor Lab Results Medium 02/05/2017 Serum Sickness Metoclopramide Anxiety Medium 02/05/2017 Extreme agitation/Psych symptoms Morphine Hives,Rash Medium 02/05/2017 Nifedipine Swelling Medium 12/03/2017 ?? Swelling w/ thjs RX or Pre-E ?? Nitrofurantoin Hives,Shortness of Breath High 02/05/2017 Nuts Anaphylaxis High 09/10/2017 Penicillins Hives,Rash Medium 02/05/2017 Sulfa Antibiotics Anaphylaxis High 02/05/2017 Trimethoprim Anaphylaxis High 02/05/2017 Medications EPINEPHrine 0.3 MG/0.3ML injection Inject 0.3 mLs (0.3 mg total) into the muscle. 08/15/19 20 Active budesonide-formote rol (SYMBICORT) 160-4.5 MCG/ACT inhalerIndications :Uncomplicated asthma, unspecified asthma severity, unspecified whether persistent ([facility]) INHALE 2 PUFFS BY MOUTH TWICE DAILY 10.2 g 3 07/25/19 22 Active Additional Information Patient taking differently: INHALE 2 PUFFS BY MOUTH TWICE DAILYHas not been taking this, Reported on 04/27/2023 montelukast 10 MG tabletIndications: Uncomplicated asthma, unspecified asthma severity, unspecified whether persistent (HHS/HCC) Take 1 tablet (10 mg total) by mouth nightly at bedtime. 30 tablet 3 07/25/19 22 Active ipratropium-albute rol 0.5-2.5 (3) MG/3ML SolutionIndication s:Moderate persistent asthma with exacerbation (HHS/HCC) Take 3 mLs by nebulization every 6 (six) hours as needed. 360 mL 1 07/25/19 22 Active valACYclovir 1 g tabletIndications: Herpes TAKE 1 TABLET(1000 MG) BY MOUTH EVERY NIGHT AT BEDTIME 90 tablet 1 07/25/19 22 Active ALBUTEROL SULFATE HFA 108 (90 Base) MCG/ACT inhalerIndications :Moderate persistent asthma without complication (HHS/HCC),Moderate persistent asthma with exacerbation (HHS/HCC) INHALE 2 PUFFS BY MOUTH FOUR TIMES DAILY 54 g 01/10/20 22 Active CETIRIZINE 10 MG tabletIndications: Moderate persistent asthma with exacerbation (HHS/HCC) TAKE 1 TABLET( 10 MG TOTAL) BY MOUTH DAILY 90 tablet 1 01/20/20 22 Active ATORVASTATIN 20 MG tabletIndications: Mixed hyperlipidemia TAKE 1 TABLET(20 MG) BY MOUTH EVERY NIGHT AT BEDTIME 30 tablet 01/20/20 22 Active OZEMPIC 2 mg/dose injection (PEN) Inject 2 mg into the skin once a week. Sunday03/28/20 22 Active venlafaxine XR (EFFEXOR-XR) 150 MG 24 hr capsuleIndications :Depression with anxiety Take 1 capsule (150 mg total) by mouth daily. 90 capsule 1 08/08/19 23 Active AIMOVIG 70 MG/ML Solution Auto-injector Once a month 01/24/20 23 Active ciprofloxacin (CIPRO) 500 MG tablet Take 1 tablet (500 mg total) by mouth. 04/27/20 23 Active ACETAMINOPHEN EXTRA STRENGTH 500 MG tablet 1 tablet (500 mg total). 04/27/20 23 Active gabapentin (NEURONTIN) 300 MG capsule Take 1 capsule (300 mg total) by mouth. 04/27/20 23 Active ibuprofen (MOTRIN) 600 MG tablet 1 tablet (600 mg total). 04/27/20 Active metroNIDAZOLE (FLAGYL) 500 MG tablet Take 1 tablet (500 mg total) by mouth 2 (two) times a day. 04/27/20 Active ondansetron (ZOFRAN-ODT) 4 MG disintegrating tablet Take 1 tablet (4 mg total) by mouth every 8 (eight) hours as needed. 04/27/20 Active oxyCODONE (OXY-IR) 5 MG capsuleIndications :Acute Pain < 3 Day Supply Take 1 capsule (5 mg total) by mouth every 4 (four) hours as needed. Indications: Acute Pain < 3 Day Supply 8 capsule 05/04/20 Active Active Problems Problem Noted Date Diagnosed Date Herpes 07/26/2021 Asthma exacerbation ([facility]) 08/02/2019 Uncomplicated asthma, unspec ified asthma severity, unspecified whether persistent ([facility]) 06/24/2019 NICOLE (obstructive sleep apnea) 06/24/2019 Pulmonary hypertension ([facility]) 019 Hot flashes 02/27/2019 Tachycardia 02/26/2019 Hyperlipidemia 02/06/2018 CHF (congestive heart failure) ([facility]) 12/13/2017 Endometriosis determined by laparoscopy 09/10/19 Type 2 diabetes mellitus wit hout complication, with long-term current use of insulin ([facility]) 09/10/2017 Abnormal liver enzymes 11/03/2016 Moderate asthma with exacerbation ([facility]) 02/2016 Depression with anxiety 08/23/2015 Gastric reflux 08/23/2015 Insomnia 08/23/2015 Migraine headache 08/23/2015 Resolved Problems Problem Noted Date Diagnosed Date Resolved Date Exposure to COVID-19 virus 06/11/2020 1 08/14/2019 PND (post-nasal drip) 06/24/20192021 Sebaceous cyst 11/01/2018 07/26/2021 Strep pharyngitis 06/04/2018 07/26/2021 Immunizations Immunization Administration Dates Next Due Flucelvax 6 Months+ (Prefilled Syringe) 06/02/20 Influenza (Generic) 04/10/2018,08/16/2015 Influenza Adult (Generic) 06/02/2020,05/09/2019, 04/10/2018 Tdap (Adacel) 02/08/2011 Tdap (Generic) 02/08/2011 Family History Medical History Relation Comments Alcohol Abuse Father Asthma Father Diabetes Father Drug Abuse Father Early Father Hypertension Father mva Father COPD Maternal Aunt Arthritis Maternal Grandmother Cancer Maternal Grandmother Cancer Mother Early Hearing Loss Mother skin cancer Mother Diabetes Paternal Grandfather Heart Disease Paternal Grandfather Hypertension Paternal Grandfather Stroke Paternal Grandfather Relation Status Comments Daughter 1 Alive Daughter 2 Alive Father Maternal Aunt Maternal Grandmother Mother Alive Other Paternal Grandfather Social History Tobacco Use Types Packs/Day Years Used Date Smoking Tobacco: Never Smokeless Tobacco: Never Alcohol Use Standard Drinks/Week Comments Yes 0 (1 standard drink = 0.6 oz pure alcohol) Very Rare - once or twice a year AUDIT-C Answer Date Recorded Frequency of Alcohol Consumption Never 08/02/2019 Average Number of Drinks Not on file 020 Frequency of Binge Drinking Not on file 07/16 PHQ-2 Answer Date Recorded PHQ-2 Score - If the patient scores above 3, please move on to questions 3-9 0 07/25/2021 Education Answer Date Recorded What is the highest level of school you have completed or the highest degree you have received? 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 Not on file Not on file Last Filed Vital Signs Vital Sign Reading Time Taken Comments Blood Pressure 109/58 05/04/2023 6:11 PM CDT Pulse 79 05/04/2023 6:11 PM CDT Temperature 36.5 C (97.7 F) 05/04/2023 6:11 PM CDT Respiratory Rate 16 05/04/2023 6:11 PM CDT Oxygen Saturation 100% 05/04/2023 6:11 PM CDT Inhaled Oxygen Concentration - - Weight 58.6 kg (129 lb 3 oz) 05/04/2023 10:23 AM CDT Height 162.6 cm (5' 4) 04/27/2023 1:27 PM CDT Body Mass Index 22.18 04/27/2023 1:27 PM CDT Plan of Treatment Health Maintenance Due Date Last Done Comments Cervical Cancer Screening Pap Smear (Age 30 to 64) Every 3 Years 1984 Kidney Health Evaluation 1984 Annual Physical 1987 Hepatitis B Vaccines (1 of 3 - 19+ 3-dose series) 2003 Pneumococcal Vaccine: Pediatrics (0 to 5 Years) and At-Risk Patients (6 to 49 Years) (1 of 2 - PCV) 2003 Cervical Cancer Screening Pap with HPV Testing (Age 30 to 64) Every 5 Years 2014 Cervical Cancer Screening with HPV 2014 Lipid Panel 02/05/2020 02/04/2019, 09/14, 04/16/2018 DTaP, Tdap and Td Vaccines (3 - Td or Tdap) 02/08/2021 02/08/2011, 02/08/2011 Hemoglobin A1C 07/12/2023 01/10/2023, 11/14, 12/14/2020, Additional history exists COVID-19 Vaccine ( season) 2024 Diabetes: Retinopathy Eye Exam 06/19/2024 06/19/2022 Mammogram Screening 2024 PHQ-2 (Physician [place]) 07/16/2024 Hepatitis C Completed 10/11/2016 HPV Vaccines Aged Out No longer eligi ble based on patient's age to complete this topic Meningococcal B Vaccine Aged Out No l onger eligible based on patient's age to complete this topic Meningococcal Vaccine Aged Out No jazmin cyndy eligible based on patient's age to complete this topic RSV Immunizations Under 20 Months Aged Out No longer eligible based on patient's age to complete this topic Procedures Procedure Name Priority Date/Time Associated Diagnosis Comments DIABETIC RETINOPATHY EXAM (NEGATIVE)(SCAN ORDER) Routine 06/19/2022 HEMOGLOBIN, GLYCOSYLATED Routine 12/05/2021 LIPID PANEL Routine 02/04/2019 1:19 PM CDT Type 2 diabetes mellitus without complication, with long-term current use of insulin HEPATITIS A,B,& C Routine 10/11/2016 11: 52 AM CDT from Last 3 Months or Most Recently Relevant to Health Maintenance Results * DIABETIC RETINOPATHY EXAM (NEGATIVE)(SCAN) (06/19/2022) [facility] Scanned SCANNING Final Resu lt [facility] * HEMOGLOBIN, GLYCOSYLATED (12/05/2021) HGB A1C 6.6 % 12/05/2021 [facility] LABORATORY Final Result * LIPID PANEL (02/04/2019 1:19 PM CDT) CHOLESTEROL 162 <200.0 MG/DL 02/04/2019 4:28 PM CDT [facility] TRIGLYCERIDES 128 <150 MG/DL 02/04/2019 4:28 PM T [facility] HDL 43 >40.0 MG/DL 02/04/2019 4:28 PM T [facility] LDL (CALCULATED) 93 <100 MG/DL 02/05/20 19 4:28 PM T [facility] NON HDL CHOLESTEROL 119 <130 MG/DL 02/04 4:28 PM T [facility] CHOL/HDL RATIO 3.8 0.0 - 4.5 02/04/2019 4:28 PM T [facility] VLDL CALCULATION 26 5 - 55 MG/DL 02/04/2019 4:28 PM T [facility] LIPID INTERPRETATION 02/04/2019 4:28 PM T [facility] Comment: [facility] CONCENSUS REPORT RECOMMENDATIONS: ADULT CHILD LOW RISK: CHOLESTEROL <200 <170 TRIGLYCERIDE <150 --- HDL >=60 --- LDL <100 <110 BORDERLINE: CHOLESTEROL 200-239 170-199 TRIGLYCERIDE 150-199 --- HDL 40-59 --- LDL 100-159 110-129 HIGH RISK: CHOLESTEROL >=240 >=200 TRIGLYCERIDE >=200 --- HDL <40 --- LDL >=160 >=130 02/04/2019 1:19 PM CDT Ryan Ventura MD LABORATORY Final Re sult [facility] [id number] [place] [id number], * HEPATITIS A,B,& C (10/11/2016 11:52 AM CDT) HAV IGM NON-REACTIVE TESTING PERFORMED AT [address] [id number] NR [facility] TO EPIC CONVERSION HEPATITIS B SURFACE AG NON-REACTIVE TESTING PERFORMED AT [address] [id number] NR [facility] TO EPIC CONVERSION HEP B SURFACE AB REACTIVE TESTING PERFORMED AT [address] [id number] [facility] TO EPIC CONVERSION HEP B CORE TOTAL AB NON-REACTIVE TESTING PERFORMED AT [address] [id number] NR [facility] TO EPIC CONVERSION HEPATITIS C AB NON-REACTIVE TESTING PERFORMED AT [address] [id number] NR [facility] TO EPIC CONVERSION 10/11/2016 11:5 2 AM CDT 10/11/2016 11:52 AM CDT Narrative [facility] TO EPIC CONVERSION - 10/12/2016 6:19 PM CDT Result Communication: Call patient with results Ryan Ventura MD LABORATORY Final Re sult [facility] TO EPIC CONVERSION from Last 3 Months or Most Recently Relevant to Health Maintenance Additional Health Concerns Infection Onset Date Last Indicated MRSA 02/21/2017 02/21/2017 Insurance [employer] [facility] Advance Directives * Full Code (Latest Code Status on File) Date Activated Date Inactivated Comments 05/04/2023 3:47 PM 05/04/2023 8:19 PM * Full Code Date Activated Date Inactivated Comments 08/02/2019 5:39 PM 08/06/2019 7:44 PM Care Teams Radio Electrician Relationship Specialty Start Date End Date Ander Spencer MD [address] [place] [id number] PCP - General INTERNAL MEDICINE 05/04/23 Neel Melvin MD [facility] [place] [address] Consulting Physician ALLERGY 04/27/23
--- OUTSIDE RECORDS SUMMARY | 2025-01-14 15:13 | XMS_ITS | Referral Summary ---
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 Gender Identity Not on file Sexual Orientation Not on file Last Filed Vital Signs [...] 01/11/2023 12:15 AM CDT Plan of Treatment Not on file Insurance COMMERCIAL GENERIC [employer] COVENTRY PPO BLUE ACC CHOICE [facility] Address: [address] [place] [address] [place] [address] BLUE ACCESS [facility] Advance Directives For more information, please contact: [phone] * Full Code (Latest Code Status on File) Date Activated Date Inactivated Comments 01/10/2023 11:44 PM 01/12/2023 1:54 AM Care Teams Phlebotomy Director Relationship Specialty Start Date End Date Ander Spencer MD PCP - General Internal Medicine 01/10/23
--- OUTSIDE RECORDS SUMMARY | 2025-01-14 15:13 | XMS_ITS | Encounter Summary ---
Author Organization [facility] Address [address] [place] [address] Care Team Providers Care Programs Director Name Role Phone Neel Melvin MD Unavailable [phone] Ander Spencer MD Primary Care Provider [phone] Encounter Details Date Type Department Care Team (Late st Contact Info) Description 01/10/2023 MyChart Message Enc [facility] [address] [place] [address] [facility] Provider Air Quality Message Social History Tobacco Use Types Packs/Day Years [...] CDT Gender Identity Female 07/26/2021 11:56 AM RISK ADVISOR Sexual Orientation Straight 07/26/2021 11 :56 AM RISK ADVISOR 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 Answer Date of Assessment Author Status No 08/02/2019 4:45 PM RISK ADVISOR Activ e * Do you have serious difficulty walking or climbing stairs? Answer Date of Assessment Author Status No 08/02/2019 4:45 PM RISK ADVISOR Dorota Centeno RN Active * Do you have difficulty dressing or bathing? Answer Date of Assessment Author Status No 08/02/2019 4:45 PM RISK ADVISOR Dorota Centeno RN Active * Because of a physical, mental, or emotional condition, do you have difficulty doing errands alone such as visiting a doctor's office or shopping? Answer Date of Assessment Author Status No 08/02/2019 4:45 PM RISK ADVISOR Dorota Centeno RN Active documented as of this encounter Mental Status * Because of a physical, mental, or emotional condition, do you have serious difficulty concentrating, remembering, or making decisions? Answer Entry Date Author Status No 08/02/2019 4:45 PM RISK ADVISOR Dorota Centeno RN Active documented in this encounter Plan of Treatment Not on file documented as of this encounter Visit Diagnoses Not on filedocumented in this encounter Additional Health Concerns Infection Onset Date Last Indicated Resolved Time MRSA 02/21/2017 02/21/2017 Assessment Noted Time PHQ-9 Depression Total Score: 0 07/25/19 22 2:27 PM RISK ADVISOR documented as of this encounter Care Teams Programs Director Relationship Specialty Start Date End Date Ander Spencer MD [address] [place] [address] PCP - General INTERNAL MEDICINE 05/04/23 Neel Melvin MD [address] [place] [address] [place] [address] Consulting Physician ALLERGY 04/27/23 documented as of this encounter
--- OUTSIDE RECORDS SUMMARY | 2025-01-14 15:13 | XMS_ITS | Data Portability ---
Author Organization [facility], [id number] Address [address] [place] [address] Assessment No assessment recorded. Plan of Treatment Reminders Order Date Submit Date Provider Last Modified By Organization Details Last Modified Time Details Appointments ANNUAL- EST 15 2025 07:45A M WILLIAM TILLMAN WHNP Not available Not available Not available Lab HPV DNA, high-risk - Reflex to genotypin g if HPV Detected 2024 025 [facility] ([facility]), [address], [place], [address], 10/03/2024 09:20:55 pap, LB 2024 025 [facility] ([facility]), [address], [place], [address], 10/03/2024 09:20:55 Referral None recorded. Procedures None recorded. Surgeries None recorded. Imaging MAMMO, screening , digital, bilateral [address] [facility], [address] [place], [address], 10/01/2024 09:30:55 Medication Orders None recorded. Patient TargetsNo targets recorded. Patient InstructionsNo instructions recorded. Reason for Referral None Reported. Results Created Date Observation Date Name Description Value Unit Range Abnormal Flag Note LastModifiedBy Organization Detail LastModifiedTime 10/02/1910/03/2024 PAP TEST THIN PREP Pap test thin prep Negati ve for Intrae pithel ial Lesion or Malign demetrius normal ACCES EL #: [id number] Sourc e: Vagin al LMP: Hyst Date Taken : 10/01 Speci men Type: ThinP rep Vial Date Repor nacho: 2024 Clini krzysztof Data: Hyst: Total Hyste recto my Last Pap: nl (02/13 11/05) Cytot ech: Adriana Limon s, CT( CP) Date Repor nacho: 2024 Speci men Adequ acy: Satis facto ry for evalu ation Gener al Categ oriza tion: NEGAT ALIS FOR INTRA EPITH ELIAL LESIO N OR MALIG JOSIE This speci men has been efren zed by the ThinP rep Imagi ng Syste m, an inter activ e compu ter syste m which maggy ts the lab in the scree jerri of ThinP rep Pap Test slide s. Follo wing imagi ng, the slide was revie wed by a Cytot echno logis t and/o r Patho logis t. Cervi krzysztof cytol ogy is a scree jerri test prima rily for squam ous cance rs and precu rsors and has assoc iated false -nega tive and false -posi tive resul ts. New techn ologi es such as liqui d-bas ed prepa ratio ns may decre ase but will not elimi tari all false -nega tive resul ts. Regul ar sampl ing and follo w-up of unexp valente d clini krzysztof signs and sympt oms are recom charles d to minim ize false negat alis resul ts. D N A A S S A Y S R E P O R T TEST NAME RESUL TS ----- ---- ----- -- HPV High Risk Screclair n (TMA) ThinP rep Vial The human papil lomav irus (HPV) High Risk Scree n is an FDA-a pprov ed in-vi tro ampli fied nucle ic acid test for the quali tativ e detec tion of E6/E7 viral mRNA. Resul ts shoul d be corre lated with patie nt prese ntati on, histo ry, cervi krzysztof cytol ogy and other clini krzysztof and labor atory findi ngs. See https ://Graffiti/s ites/ defau lt/fi 0 /- [id number] _002_ 01.pd f for furth er infor matio n. Test perfo rmed by [facility], [employer] d/b/a [facility], [address], [place] [address] , Katrin Tang ra, DO, Labor atory Dire tor, CLIA# [id number] HPV High Risk *HPV NOT DETEC NACHO (TYPE S 16, 18, 31, 33, 35, 39, 45, 51, 52, 56, 58, 59, 66, 68) *HPV: The human papil lomav irus (HPV) High Risk Rosendo quint[place] is an FDA-a pprov ed in-vi tro ampli fied nucle ic acid test for the quali tativ e detec tion of E6/E7 viral mRNA. Resul ts shoul d be corre lated with patie nt prese ntati on, histo ry, cervi krzysztof cytol ogy and other clini krzysztof and labor atory findi ngs. See https ://Graffiti/s ites/ defau lt/fi -0 /- [id number] _002_ 01.pd f for furth er infor matio n. Test perfo rmed by [facility], [employer], [address], [place] [address] , Katrin Tang ra, DO, Labor atory Dire tor, CLIA# [id number] End of Repor t Techn ical servi nicolas provi ded by [facility], [employer], d/b/a [facility], [address] [place] [address] Waldo fox MD, Labor atory Dire tor. Case revie wed and diagn osis rende red at [facility], d/b/a Naty sydguillaume, [address] [place] [address] Waldo Cole. Daya fox MD, Labor atory Direc tor. CONFI DENTI AL Not Available [facility] ([facility]) [address] [facility], [place], [address], 10/03/2024 09:20:55 10/02/19 25 10/02/2024 HPV HIGH RISK SCREE N (TMA) HPV high risk NOT DETECT ED normal Not Available [facility] ([facility]) [address], [place], [address], 10/03/2024 09:20:55 Result Notes None recorded. Problems Name Problem SNOMED Code Status Onset Date Resolution Date Notes Provider Name and Address Organization Details Recorded Time Anxiety 46128169 Active 2024 WILLIAM OWENS [address], [place], [address] , [place] [facility] 5 09:15:22 Asthma 479651074 Active 2024 WILLIAM OWENS [address], [place], [address] , [place] [facility] 5 09:15:23 Congestive heart failure 92101120 Active 2024 WILLIAM TILLMAN MELODY [address], [place], [address] , [facility] 5 09:15:25 Type 2 diabetes mellitus 38121823 Active 2024 Kathy miller, [facility] 5 09:52:32 Endometrio sis (clinical) 856322359 Active 2024 WILLIAM OWENS [address], [place], [address] , [place] - [facility] 5 09:15:27 Genital herpes simplex 94175340 Active 2024 WILLIAM Clair PRIMO WHNP [address], [place], [address] , [place] - [facility] 5 09:15:29 Irritable bowel syndrome 44311252 Active 2024 WILLIAM TILLMAN WHMELODY [address], [place], [address] , [place] - [facility] 5 09:15:31 Migraine 53184514 Active 2024 WILLIAM TILLMAN WHMELODY [address], [place], [address] , [facility] 5 09:15:33 Pre-eclamp phoenix 907168344 Active 2024 WILLIAM TILLMAN WHNP [address], [place], [address] , [facility] 5 09:15:42 Vaginal dryness on intercours e 600873213 Active 2024 WILLIAM TILLMAN WHMELODY [address], [place], [address] , [place] - [facility] 5 09:24:18 Anxiety state 918442656 Active Anxiety Disorder, Generaliz ed, - Phrees[employer] 8 Problem Code: 300.00; Problem Code Type: ICD-9; Not Available [facility] 5 12:39:12 Type 2 diabetes mellitus without complicati on 074123546 Active Diabetes, Type 2, - [employer] 8 Problem Code: 250.00; Problem Code Type: ICD-9; Not Available [facility] 5 12:39:13 Mild pre-eclamp phoenix 53571254 Active Preeclamp phoenix, Problem Code: 642.41; Problem Code Type: ICD-9; Not Available [facility] 12:39:13 Problem Notes None recorded. Procedures Surgical History Date Name Laterality Status Provider Name and Address Organization Details Recorded Time 02/14/20 24 Date of Last Mammogram completed Kathy Ketten [place] [facility] 10/01/2024 08:58:21 05/04/20 23 robotic assisted surgery completed Kathy Ketten [place] [facility] 09/30/2024 10:57:48 02/27/20 23 Date of Last Pap Smear completed Kathy [place]ten [place] [facility] 09/30/2024 09:56:43 12/21/19 21 Bariatric Surgery completed Kathy Ketten [place] [facility] 09/30/2024 10:54:23 12/21/19 21 bariatric operative procedure completed Not Available [facility] 11/13/2024 15:04:17 07/16/19 15 intrauterine artificial insemination completed Kathy Ketten [place] [facility] 09/30/2024 10:58:01 07/16/19 13 Colonoscopy completed Kathy [place] [facility] 09/30/2024 09:56:59 07/16/19 13 Date of Last Colonoscopy completed Kathy [place]ten [place] [facility] 09/30/2024 09:57:42 07/16/19 13 Ovarian Cystectomy completed Kathy [place] [facility] 09/30/2024 10:56:40 07/16/19 11 Dilation and Curettage completed Kathy Ketten [place] [facility] 09/30/2024 10:58:46 procedure on urinary bladder completed Kathy [place]ten [place] [facility] 09/30/2024 10:54:31 section completed Kathy [place]ten [place] [facility] 09/30/2024 10:58:37 Colonoscopy completed Kathy [place] [facility] 09/30/2024 10:54:59 endometrial biopsy completed Kathy [place]ette n [place] [facility] 09/30/2024 10:55:16 endoscopy completed Kathy [place] [facility] 09/30/2024 10:55:23 exploratory laparotomy completed Kathy [place] [facility] 09/30/2024 10:55:40 Cholecystectomy completed Kathy Ketten [place] [facility] 09/30/2024 10:55:49 laparoscopy completed Kathy [place] [facility] 09/30/2024 10:56:22 extraction of wisdom tooth completed Kathy [place] [facility] 09/30/2024 10:57:55 Orthopedic Surgery completed Kathy [place]ette n [place] [facility] 10/01/2024 08:52:22 Hysteroscopy completed [place] [facility] 10/01/2024 08:52:22 Laparoscopy completed Kathy [place] [facility] 10/01/2024 08:52:22 Ovarian Cystectomy completed Kathy [place]ette n [place] [facility] 10/01/2024 08:52:22 Endometrial Biopsy completed Kathy [place]ette n [place] [facility] 10/01/2024 08:52:22 Total Hysterectomy completed Kathy [place]ette n [place] [facility] 10/01/2024 08:52:22 Breast Surgery completed Kathy [place] [facility] 10/01/2024 08:52:22 Caesarean Section completed Kathy [place] [facility] 10/01/2024 08:52:22 Laparoscopic cholecystectomy completed Not Available [facility] 11/13/2024 15:04:16 Remove intrauterine device completed Not Available [facility] 11/13/2024 15:04:16 Removal of ovarian cyst(s) completed Not Available [facility] 11/13/2024 15:04:16 Kyleena, 19.5 mg completed Not Available [facility] 11/13/2024 15:04:16 dilation and curettage completed Not Available [facility] 11/13/2024 15:04:16 introduction of Mirena coil completed Not Available [facility] 11/13/2024 15:04:16 removal of Mirena coil completed Not Available [facility] 11/13/2024 15:04:17 colonoscopy completed Not Available [facility] 11/13/2024 15:04:17 diagnostic laparoscopy completed Not Available [facility] 11/13/2024 15:04:18 Imaging Results None recorded. Procedure Notes None recorded. Medical Equipment None Reported. Allergies Allergen ID Allergen Name Allergen Category Reaction Reaction Severity Criticality Documentation Date Start Date Code Code System Note Provider Name and Address Organization Details Recorded Time 289039 amoxicill in medicatio n Not available Not available Not available 09/30/2024 723 RxNorm Kathy Ketten null, [place] [facility] 5 09:46:58 483872 Bactrim medicatio n swelling Not available Not available 09/30/2024 89588 9 RxNorm Kathy [place] [facility] 5 09:47:16 880621 Ceclor medicatio n Not available Not available Not available 09/30/2024 15102 5 RxNorm Kathy Ketten [place] [facility] 5 09:47:22 540582 Macrobid medicatio n Not available Not available Not available 09/30/2024 22637 1 RxNorm Kathy [place] [facility] 5 09:47:29 501427 morphine medicatio n Not available Not available Not available 09/30/2024 7052 RxNorm Kathy [place] [facility] 5 09:47:35 826392 nitrofura ntoin medicatio n Not available Not available Not available 09/30/2024 7454 RxNorm Kathy [place] [facility] 5 09:47:43 448388 Product containin g penicilli n (product) medicatio n Not available Not available Not available 09/30/2024 37943 8001 SNOMED Kathy Ketten [place] [facility] 5 09:48:17 208606 Procardia medicatio n Not available Not available Not available 09/30/2024 92611 3 RxNorm Kathy [place] [facility] 5 09:48:34 687628 Reglan medicatio n Not available Not available Not available 09/30/2024 9230 RxNorm Kathy [place] [facility] 5 09:48:44 112794 Substance with sulfonami de structure and antibacte rial mechanism of action (substanc e) medicatio n Not available Not available Not available 09/30/2024 99836 8003 SNOMED Kathy [place] [facility] 5 09:48:51 255376 trimethop rim medicatio n Not available Not available Not available 09/30/2024 04704 RxNorm Kathy [place] [facility] 5 09:49:16 353464 nystatin medicatio n Not available Not available Not available 10/01/2024 7597 RxNorm Kathy [place] [facility] 5 08:51:42 366830 metronida zole medicatio n Not available Not available Not available 10/01/2024 6922 RxNorm Kathy [place] [facility] 5 08:51:42 689973 house dust allergeni c extract environme nt,medica tion Not available Not available Not available 10/01/2024 01237 9 RxNorm Kathy [place] [facility] 5 08:51:42 296045 egg extract food,medi cation Not available Not available Not available 10/01/2024 14990 15 RxNorm Kathy [place] [facility] 5 08:51:42 592202 tree nut food Not available Not available Not available 10/01/2024 85314 UNK Kathy Ketten [place] [facility] 5 08:51:42 591624 cat dander environme nt Not available Not available Not available 10/01/2024 10240 UNK Kathy So [facility], [facility] 5 08:51:42 661800 mold extract environme nt Not available Not available Not available 10/01/2024 94489 8 RxNorm Kathy So [facility], [facility] 5 08:51:42 550834 diphenhyd ramine hydrochlo ride medicatio n Not available Not available Not available 11/13/2024 1362 RxNorm NOTE: Trime thopr im, Chetna n - Phree phoenix 12/16 Aller gyRea ction : 'Swel ling, Diffi culty breat promise, Other '; Not Available [facility] 5 12:28:47 Medications Name Sig Start Date Stop Date Status Note LastModified by Organization Details LastModified Time atorvastati n 20 mg tablet TAKE 1 TABLET BY MOUTH EVERY DAY DIRECTED active Not Available Not Available No t Available ondansetron HCl 4 mg tablet TAKE 1 TABLET (4 MG) BY ORAL ROUTE 3 TIMES PER DAY active Not Available Not Available No t Available venlafaxine ER 150 mg capsule,ext ended release 24 hr TAKE 1 CAPSULES( 150 MG) BY MOUTH DAILY active Not Available Not Available No t Available ciprofloxac in 500 mg tablet TAKE 1 TABLET BY MOUTH EVERY 12 HOURS 09/30 completed Not Available Not Available Not Available prednisolon e acetate 1 % eye drops,suspe nsion INSTILL 1 DROP IN RIGHT EYE FOUR TIMES A DAY FOR 5 DAYS. 09/30 completed Not Available Not Available Not Available gabapentin 300 mg capsule TAKE 1 CAPSULE TWICE DAILY STARTING THE MORNING OF SURGERY FOR 14 DAYS 09/30 completed Not Available Not Available Not Available montelukast 10 mg tablet TAKE 1 TABLET BY MOUTH EVERY DAY IN THE EVENING active Not Available Not Available No t Available scopolamine 1 mg over 3 days transdermal patch 1 PATCH TO SKIN TRANSDERM AL APPLY TO SKIN THE NIGHT BEFORE SURGERY 3 DAYS active Not Available Not Available No t Available doxycycline hyclate 100 mg tablet TAKE 1 TABLET BY MOUTH TWICE DAILY FOR 10 DAYS 09/30 completed Not Available Not Available Not Available diazepam 5 mg tablet 1 TABLET ORALLY EVERY 6 HOURS FOR MUSCLE SPASMS TAKE ONE HOUR AFTER LAST PAIN PILL 7 DAYS active Not Available Not Available No t Available oxycodone 5 mg tablet 10/01 completed Not Available Not Available Not Available aripiprazol e 5 mg tablet TAKE 1 TABLET BY MOUTH EVERY DAY active Not Available Not Available No t Available rosuvastati n 5 mg tablet TAKE 1 TABLET BY MOUTH EVERY DAY 10/01 completed Not Available Not Available Not Available Trulicity 1.5 mg/0.5 mL subcutaneou s pen injector INJECT 1.5 MG BY SUBCUTANE OUS ROUTE ONCE WEEKLY 10/01 completed Not Available Not Available Not Available Trulicity 0.75 mg/0.5 mL subcutaneou s pen injector ADMINISTE R 0.75 MG UNDER THE SKIN WEEKLY 10/01 completed Not Available Not Available Not Available Aimovig Autoinjecto r 70 mg/mL subcutaneou s auto-inject or active Not Available Not Available Not Available Aimovig Autoinjecto r 140 mg/mL subcutaneou s auto-inject or 09/30 completed Not Available Not Available Not Available Qulipta 30 mg tablet TAKE 1 TABLET BY MOUTH EVERY DAY active Not Available Not Available No t Available Ozempic 2 mg/dose (8 mg/3 mL) subcutaneou s pen injector INJECT 2MG UNDER THE SKIN ONCE WEEKLY 10/01 completed Not Available Not Available Not Available Mounjaro 7.5 mg/0.5 mL subcutaneou s pen injector INJECT 7.5 MG BY SUBCUTANE OUS ROUTE ONCE WEEKLY 10/01 completed Not Available Not Available Not Available Mounjaro 5 mg/0.5 mL subcutaneou s pen injector INJECT 5 MG SUBCUTANE OUSLY ONE TIME PER WEEK active Not Available Not Available No t Available FreeStyle Rebecca 3 Sensor device USE DIRECTED TO MONITOR DIABETES CONTROL active Not Available Not Available No t Available Vitals Date Recorded Body height Body mass index (BMI) Body weight Systolic blood pressure Diastolic blood pressure Provider Name and Address Organization Details Last Updated DateTime 10/01/2024 163.83 cm 21 kg/m2 56067.45 g 118 mm[Hg] 62 mm[Hg] Kathy So [facility] 08:56:13 Social History Question Answer Notes LastModified by Organizat ion Details LastModified Time Tobacco Smoking Status Never Smoker Kathy So [facility], [facility] for [facility] 09/30/2024 10:53:58 Do You Have An Advance Directive? No Information not available 10/01/2024 If You Are , What Was Your Level Of Alcohol Consumption Prior To ? Occasional Information not available 10/01/2024 How Many Years Have You Consumed Alcohol? 20 Information not available 10/01/2024 What Is Your Level Of Caffeine Consumption? Heavy Information not available 10/01/2024 What Type Of Diet Are You Following? REGULAR Information not available 10/01/2024 What Is Your Relationship Status? Information not available 09/30/2024 Sex: Unknown Functional Status Question Answer Note LastModified by Organizat ion Details LastModified Time Do you use any illicit or recreational drugs? No Information not available 09/30/2024 What is your level of alcohol consumption? Occasional Information not available 10/01/2024 Are you currently employed? 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 Family History Relationship Description Onset Age of this Age Resolved Age Notes LastModified by Organization Details LastModified Time Paternal Grandmother Alzheimer's disease tketten Not available 2024 08:51:45 Paternal Grandmother Pulmonary emphysema tketten Not available 2024 08:51:45 Paternal Grandmother Cerebrovascu lar accident tketten Not available 08:51:45 Paternal Grandmother Myocardial infarction tketten Not available 10/01 08:51:45 Paternal Grandmother Heart disease tketten Not available 2024 08:51:45 Father Asthma tketten Not available 10:01:24 Father Depressive disorder tketten Not available 2024 10:01:58 Father Diabetes mellitus tketten Not available 2024 10:02:20 Father Hypercholest erolemia tketten Not available 2024 08:51:45 Father Hypertensive disorder tketten Not available 2024 10:53:09 Father Anxiety disorder tketten Not available 2024 08:51:45 Father Heart disease tketten Not available 2024 08:51:45 Mother Malignant melanoma tketten Not available 2024 08:51:45 Mother Fibromyalgia tketten Not availa ble 10/01/2024 08:51:45 Mother Hypertensive disorder tketten Not available 2024 10:53:09 Mother Lupus erythematosu s tketten Not available 2024 08:51:45 Mother Malignant tumor of breast tketten Not available 2024 08:51:45 Mother Depressive disorder tketten Not available 2024 08:51:45 Mother Pre-eclampsi a tketten Not available 2024 08:51:45 Maternal Grandmother Malignant tumor of colon tketten Not available 2024 10:01:49 Maternal Grandmother Diabetes mellitus tketten Not available 2024 10:02:20 Maternal Grandmother Fibromyalgia tketten Not available 0 10/01/2024 08:51:45 Maternal Grandmother Hypertensive disorder tketten Not available 2024 10:53:09 Paternal Grandfather Diabetes mellitus tketten Not available 2024 10:02:20 Paternal Grandfather Hypercholest erolemia tketten Not available 2024 08:51:45 Paternal Grandfather Hypertensive disorder tketten Not available 2024 10:53:09 Paternal Grandfather Myocardial infarction tketten Not available 09/30 10:53:29 Paternal Grandfather Disorder of lung tketten Not available 2024 08:51:45 Paternal Grandfather Heart disease tketten Not available 2024 08:51:45 Sister Anxiety disorder tketten Not available 2024 08:51:45 Father Mixed hypercholest erolemia and hypertriglyc eridemia Elevat ed Choles terol/ Trigly ceride s Not available 11/13/2024 16:57:49 Father Type 2 diabetes mellitus without complication DM Type II Proble m Code: 250.00 ; Proble m Code Type: ICD-9; Not available 11/13/2024 16:57:50 Paternal Grandfather Mixed hypercholest erolemia and hypertriglyc eridemia Elevat ed Choles terol/ Trigly ceride s Not available 11/13/2024 16:57:49 Paternal Grandfather Type 2 diabetes mellitus without complication DM Type II Proble m Code: 250.00 ; Proble m Code Type: ICD-9; Not available 11/13/2024 16:57:50 Maternal Grandmother Fibromyositi s Fibrom yalgia Not available 11/13/2024 16:57:50 Maternal Grandmother Type 2 diabetes mellitus without complication DM Type II Proble m Code: 250.00 ; Proble m Code Type: ICD-9; Not available 11/13/2024 16:57:50 Maternal Grandmother Malignant neoplastic disease Cancer MOM - melano ma MGM- colon Not available 11/13/2024 16:57:50 Mother Fibromyositi s Fibrom yalgia Not available 11/13/2024 16:57:50 Mother Malignant neoplastic disease Cancer MOM - melano ma MGM- colon Not available 11/13/2024 16:57:50 Mother Systemic lupus erythematosu s Lupus Not available 2024 16:57:51 Paternal Grandmother Emphysema Emphys bee Proble m Code: 492; Proble m Code Type: ICD-9; Not available 11/13/2024 16:57:51 Medical History Condition Response Psych- Depression Y GI- Irritable Bowel Syndrome Y Cancer- Genetic screening Urology- Interstitial Cystitis Y ID- Herpes Y Cardiology-Other Y Psych- Anxiety Disorder Y ID-Other Y Neurology- Headaches/Migraines Y Endocrinology- Diabetes Y Pulmonary- Asthma Y Gynecological History Statement/Question Response Date of Last Mammogram 02/14/2024 Flow Heavy History of Fibroids Y Date of LMP 02/17/2023 Current Control Method: Hysterecto my History of Recurrent Ovarian Cysts Y Age at first intercourse 16 HPV Vaccine Not Completed Date of Last Colonoscopy 07/16/2012 Date of Last Diabetes Screening 07/16/19 21 Date of Last Cholesterol Screening 07/16 History of PCOS N History of Infertility N History of Cervical Dysplasia N History of Vulvar Dysplasia N Duration of Flow (days) 7 Current Control Method Hysterectom y Age at Menarche 11 History of Endometriosis Y Sexually Active? Y History of Dysmenorrhea N Menses Monthly N Date of Last Pap Smear 02/26/2023 Sexual Problems? N History of Sexually Transmitted Infectio n N Colonoscopy 07/16/2012 Obstetrics History GPAL:G 2 P 0 2 0 2 Type Value Premature 2 Living 2 Total 2 Immunizations Vaccine Type Date Status Note Provider Nam e and Address Organization Details Recorded Time influenza, unspecified formulation 2 completed Kathysol So null, [facility] 09/30/2024 09:55:14 Pneumococcal Conjugate, unspecified formulation 7 completed Kathy Ketpamela null, [facility] 09/30/2024 09:55:34 Tdap 2 completed Kathy Ketten null, [facility] 09/30/2024 09:55:45 Past Encounters Encounter ID Performer Location Encounter Start Date Encounter Closed Date Diagnosis/Indication Diagnosis SNOMED-CT Code Diagnosis ICD10 Code Diagnosis Note [id number] NAZANIN SELF RD, MD [id number] [facility] [address] [facility] [place] [address] 10/01/2024 08:26:21 10/01/2024 09:30:55 Screening mammography 59892981 Z12.31 -call to schedule mammogram Gynecologi c examination [id number] Z01.419 -f/u 1 year for annual MEDICAL RECEPTIONIST exam Vaginal dr hernández on intercourse [id number] N89.8 -wishes to try revaree and will call if she decides to try vaginal estradiol Screening for malignant neoplasm of cervix 204314699 Z12.4 -pap today r/t pt reported hx of precancero us cervical changes prior to hysterecto my Human kennedy lloma virus screening 188817694 Z11.51 Depression screening 171 666361 Z13.31 -score 5-feels like mood is okay Health Concerns Section Related Observation LastModified by Organization Detai ls LastModified Time None Recorded Concern Status LastModified by Organization Details LastModified Time None Recorded Advance Directives Directive N: Payers Insurance Date Sequence Insurance Name Policy Number Policy Hines Covered Member ID Hines Member ID Guarantor Name 09/28/2024 1 [place] [id number] Elsy Blackburn y [id number] Elsy Pinto Notes Date Note Type Note Provider Name and Address Organization Details Recorded Time 10/01/2024 text/html [facility] Annual Well-Women Visit Age 40-64Reported bypatient.Current Medical History:reviewed and documented Relevant Family History:has a family history of breast cancer(mother dx breast ca at age 64) Last Pap smear:due Mammography:is scheduled to be done; mammogram prior to breast augmentation last fall showed a spot that they wanted to f/u on-scheduled for 6mo f/u. Contraceptive Method:N/A Sexually Active:Yes: same partner STI Screen:declines STI testingNotes:hx of hysterectomy-state s it was for endometriosis/pelv ic pain/precancerous cervical changes. discussed pap today and pt agrees. -radhika [facility]IAM [facility] [address], [place], [address], [facility] 10/01/2024 12:44:10 OBGyn Episode Ob Episode Information Episode Created Date Number of Fetuses Patient Bloodtype Patient rh Status Prepregnancy Weight lbs Domestic Partner Domestic Partner Phone Father Name Wind Field Manager Status 10/01/19 25 1 CLOSED Fetus Data First Name Last Name Admitted to NICU Weight (g) Sex Living Outcome Pediatric Complications Fetus ID Race Codes Race Delivery Type 3259.96 5704 F Prematur e Repeat Jone Calculation Initial Jone Date Initial Exam Date Initial Exam Provider Initial Ultrasound Date Last Menstrual Period Date Ultra Sound Weeks Gestation 0 Eighteen To Twenty Week Jone Update Ultra Sound Date Fundal Height At Umbil Quickening Date Ultra Sound Latest Weeks Gestation Final Jone Confirmed By Final Jone Confirmed Date Final Jone Date Ultra Sound Latest Days Gestation 0 0 Menstrual History Last Menstrual Date Menses Monthly On Bcp Conception Prior Menses Frequency Hcg Plus Date Menarche Onset Age Delivery Information Delivery Date Delivery Type Labor Anesthesia Weeks Gestation Incision Type Labor Labor Length Hrs Delivered By Post Complications Tubal Sterilization Discharge Date Comments 8 34 severe preeclamp formerly [facility] [place] Discharge Information Feeding Method Contraceptive Method Maternal HG B and HCT Levels Ob Episode Information Episode Created Date Number of Fetuses Patient Bloodtype Patient rh Status Prepregnancy Weight lbs Domestic Partner Domestic Partner Phone Father Name Wind Field Manager Status 10/01/19 25 1 CLOSED Fetus Data First Name Last Name Admitted to NICU Weight (g) Sex Living Outcome Pediatric Complications Fetus ID Race Codes Race Delivery Type 3997.05 [id number] F Prematur e Primary Jone Calculation Initial Jone Date Initial Exam Date Initial Exam Provider Initial Ultrasound Date Last Menstrual Period Date Ultra Sound Weeks Gestation 0 Eighteen To Twenty Week Jone Update Ultra Sound Date Fundal Height At Umbil Quickening Date Ultra Sound Latest Weeks Gestation Final Jone Confirmed By Final Jone Confirmed Date Final Jone Date Ultra Sound Latest Days Gestation 0 0 Menstrual History Last Menstrual Date Menses Monthly On Bcp Conception Prior Menses Frequency Hcg Plus Date Menarche Onset Age Delivery Information Delivery Date Delivery Type Labor Anesthesia Weeks Gestation Incision Type Labor Labor Length Hrs Delivered By Post Complications Tubal Sterilization Discharge Date Comments 7 36 bp high, baby heart rate dropped, Jose A Discharge Information Feeding Method Contraceptive Method Maternal HG B and HCT Levels
--- OUTSIDE RECORDS SUMMARY | 2025-01-14 15:13 | XMS_ITS | Encounter Summary ---
Author Organization [facility] Address [address] [place] [address] Care Team Providers Care Goodwill Ambassador Name Role Phone Ryan Ventura MD Primary Care Provider + Reason for Visit * Reason Onset Date Comments Appointment 09/18/2017 Called patient a s a reminder for appointment 09/19/17. Patient stated cancel appointment. I expressed the importantance of her showing for this appointment to meet with our personal development educator for her Type II and just being discharged from the hospital. Ms. Kate stated she had to go to work. I explained we could give a letter to her for the employer, she rejected and stated I will come when I can I explained the personal development educator is here Wed. only. I notified Aurora in her OB's office. Encounter Details Date Type Department Care Team (Late st Contact Info) Description 09/18/2017 Telephone [facility] [address] [place] [address] Luba Alcantara Appointment (Called patient as a reminder for appointment 09/19/17. Patient stated cancel appointment. I expressed the importantance of her showing for this appointment to meet with our personal development educator for her Type II and just being discharged from the hospital. Ms. Kate stated she had to go to work. I explained we could give a letter to her for the employer, she rejected and stated I will come when I can I explained the personal development educator is here Wed. only. I notified Aurora in her OB's office. ) Social History Tobacco Use Types Packs/Day Years Used Date Smoking Tobacco: Never Smokeless Tobacco: Never Alcohol Use Standard Drinks/Week Comments Yes 0 (1 standard drink = 0.6 oz pur e alcohol) Comments Yes Sex and Gender Information Value Date Recorded Sex Assigned at Not on file Legal Sex Female 5:33 AM LIFE TEACHER Gender Identity Not on file Sexual Orientation Not on file documented as of this encounter Functional Status * Is person deaf or have serious hearing difficulty? Answer Date of Assessment Author No 09/11/2017 12:00 PM Elidia Torres RN * Is person blind or have serious difficulty seeing? Answer Date of Assessment Author No 09/11/2017 12:00 PM Elidia Torres RN * Does person have serious difficulty walking/climbing stairs? Answer Date of Assessment Author No 09/11/2017 12:00 PM Elidia Torres RN * Does person have difficulty dressing/bathing? Answer Date of Assessment Author No 09/11/2017 12:00 PM Elidia Torres RN * Does person have difficulty doing errands alone? Answer Date of Assessment Author No 09/11/2017 12:00 PM Elidia Torres RN documented as of this encounter Mental Status * Does person have difficulty concentrating/remembering/making decisions? Answer Entry Date Author No 09/11/2017 12:00 PM Elidia Torres RN documented in this encounter Plan of Treatment Not on file documented as of this encounter Visit Diagnoses Not on filedocumented in this encounter Care Teams Goodwill Ambassador Relationship Specialty Start Date End Date Ryan Ventura MD PCP - General Internal Medicine 09/10/17 documented as of this encounter
--- OUTSIDE RECORDS SUMMARY | 2025-01-14 15:13 | XMS_ITS | Clinical Summary ---
Author Organization [facility] Address [address] [place] [address] Phone Care Team Providers Care Editor Department Name Role Phone Ryan Joshua MD Primary Care Provider [facility] Social History Tobacco Use Types Packs/Day Years Used Date Smoking Tobacco: Never Assessed Comments Unknown Sex and Gender Information Value Date Recorded Sex Assigned at Not on file Legal Sex Female 2:26 PM PROJECTION ENGINEER Gender Identity Not on file Sexual Orientation Not on file Plan of Treatment Health Maintenance Due Date Last Done Comments Hepatitis C Virus (HCV) Screening 1984 TdaP Immunization 1984 Hepatitis B Immunization (1 of 3 - 19+ 3-dose series) 2003 SARS-COV-2 Immunization ( season) 2024 Influenza Immunization (Seas on Ended) 2025 06/02/2020 Respiratory Syncytial Virus (RSV) Immunization (Adult) (1 - 1-dose 75+ series) 2059 Human Papillomavirus (HPV) Immunization Aged Out No longer eligible b ased on patient's age to complete this topic Meningococcal Immunization (ACWY) Aged Out No longer eligible based on patient's age to complete this topic Pneumococcal Immunization Combined Aged Out No longer eligible based on patient's age to complete this topic Rotavirus Immunization Aged Out No lo nger eligible based on patient's age to complete this topic Insurance [employer] Care Teams Editor Department Relationship Specialty Start Date End Date Ryan Joshua MD PCP - General Internal Medicine 06/25/20
--- OUTSIDE RECORDS SUMMARY | 2025-01-14 15:13 | XMS_ITS | Encounter Summary ---
Author Organization [facility] Address [address] [place] [address] Care Team Providers Care Car Salesman Name Role Phone Neel Melvin MD Unavailable [phone] Ander Spencer MD Primary Care Provider [phone] Encounter Details Date Type Department Care Team (Late st Contact Info) Description 10/31/2022 Pharma Two B Message Enc [facility] Family & Internal Medicine [address] [address] [place], [facility] Provider primary care provider Social History Tobacco Use Types Packs/Day Years [...] CDT Gender Identity Female 07/26/2021 11:56 AM NURSERY NURSE Sexual Orientation Straight 07/26/2021 11 :56 AM NURSERY NURSE 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 Answer Date of Assessment Author Status No 08/02/2019 4:45 PM NURSERY NURSE Activ e * Do you have serious difficulty walking or climbing stairs? Answer Date of Assessment Author Status No 08/02/2019 4:45 PM NURSERY NURSE Dorota Centeno RN Active * Do you have difficulty dressing or bathing? Answer Date of Assessment Author Status No 08/02/2019 4:45 PM NURSERY NURSE Dorota Centeno RN Active * Because of a physical, mental, or emotional condition, do you have difficulty doing errands alone such as visiting a doctor's office or shopping? Answer Date of Assessment Author Status No 08/02/2019 4:45 PM NURSERY NURSE Dorota Centeno RN Active documented as of this encounter Mental Status * Because of a physical, mental, or emotional condition, do you have serious difficulty concentrating, remembering, or making decisions? Answer Entry Date Author Status No 08/02/2019 4:45 PM NURSERY NURSE Dorota Centeno RN Active documented in this encounter Plan of Treatment Not on file documented as of this encounter Visit Diagnoses Not on filedocumented in this encounter Additional Health Concerns Infection Onset Date Last Indicated Resolved Time MRSA 02/21/2017 02/21/2017 Assessment Noted Time PHQ-9 Depression Total Score: 0 07/25/19 22 2:27 PM NURSERY NURSE documented as of this encounter Care Teams Car Salesman Relationship Specialty Start Date End Date Ander Spencer MD [address] [place] [id number] PCP - General INTERNAL MEDICINE 05/04/23 Neel Melvin MD [address] [place] [address] [place] [address] Consulting Physician ALLERGY 04/27/23 documented as of this encounter
--- OUTSIDE RECORDS SUMMARY | 2025-01-14 15:13 | XMS_ITS | Encounter Summary ---
Author Organization [facility] Address [address] [place] [address] Care Team Providers Care Peanut Cleaner Name Role Phone Ryan Ventura MD Primary Care Provider U Neel Chan MD Unavailable [phone] Ander Spencer MD Primary Care Provider [phone] Encounter Details Date Type Department Care Team (Late st Contact Info) Description 01/10/2022 Abstract [facility] [address] [place] [phone] Abstract, Doc [facility] Social History Tobacco Use Types Packs/Day Years Used Date Smoking Tobacco: Never Smokeless Tobacco: Never Alcohol Use Standard Drinks/Week Comments Yes 0 (1 standard drink = 0.6 oz pure alcohol) occasionally, usually a mixed drink- very seldom AUDIT-C Answer Date Recorded Frequency of Alcohol [...] CDT Gender Identity Female 07/26/2021 11:56 AM UTILIZATION REVIEWER Sexual Orientation Straight 07/26/2021 11 :56 AM UTILIZATION REVIEWER 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 Answer Date of Assessment Author Status No 08/02/2019 4:45 PM UTILIZATION REVIEWER Activ e * Do you have serious difficulty walking or climbing stairs? Answer Date of Assessment Author Status No 08/02/2019 4:45 PM UTILIZATION REVIEWER Dorota Centeno RN Active * Do you have difficulty dressing or bathing? Answer Date of Assessment Author Status No 08/02/2019 4:45 PM UTILIZATION REVIEWER Dorota Centeno RN Active * Because of a physical, mental, or emotional condition, do you have difficulty doing errands alone such as visiting a doctor's office or shopping? Answer Date of Assessment Author Status No 08/02/2019 4:45 PM UTILIZATION REVIEWER Dorota Centeno RN Active documented as of this encounter Mental Status * Because of a physical, mental, or emotional condition, do you have serious difficulty concentrating, remembering, or making decisions? Answer Entry Date Author Status No 08/02/2019 4:45 PM Dorota Hilario RN Active documented in this encounter Plan of Treatment Not on file documented as of this encounter Procedures Procedure Name Priority Date/Time Associated Diagnosis Comments HEMOGLOBIN, GLYCOSYLATED Routine 12/05/2021 documented in this encounter Results * HEMOGLOBIN, GLYCOSYLATED (12/05/2021) HGB A1C 6.6 % 12/05/2021 us Doc [facility] Abstract LABORATORY Final Result documented in this encounter Visit Diagnoses Not on filedocumented in this encounter Additional Health Concerns Infection Onset Date Last Indicated Resolved Time MRSA 02/21/2017 02/21/2017 Assessment Noted Time PHQ-9 Depression Total Score: 0 01/10/20 22 2:27 PM UTILIZATION REVIEWER documented as of this encounter Care Teams Peanut Cleaner Relationship Specialty Start Date End Date Ryan Ventura MD PCP - General INTERNAL MEDICINE 04/27/18 10/19/22 Ander Spencer MD [address] [place] [address] PCP - General INTERNAL MEDICINE 05/04/23 Neel Melvin MD [address] [place] [address] Consulting Physician ALLERGY 04/27/23 documented as of this encounter
--- OUTSIDE RECORDS SUMMARY | 2025-01-14 15:13 | XMS_ITS | Clinical Summary ---
Author Organization [facility] [employer] Address [address] [facility] [facility] [place] [address] Care Team Providers Care Back Roll Lathe Operator Name Role Phone Ryan Ventura MD Primary Care Provider + Source Comments [facility] [employer],non-owned Affiliates and Associated Physician Practices is amultiple site organization consisting of ambulatory clinics and hospital sitesin [place], [place], [place] and [place]. This disclosure is being madepursuant to the Care Everywhere program and may not contain all information available regarding this patient. Last updated 18.[facility] [employer] Allergies Active Allergy Reactions Criticality Noted Date Comments Cefaclor Other High 11/24/2017 Serum Sickness Morphine Rash Medium 09/10/2017 Nitrofurantoin Wheezing Medium 09/10/2017 Penicillins Rash Medium 09/10/2017 Nifedipine Other 12/03/2017 ?? Swelling w/ thjs RX or Pre-E ?? Metoclopramide Psychiatric Medium 12/03/2017 Extreme agitation Sulfa Drugs Anaphylaxis High 09/10/2017 Tree Nuts Anaphylaxis High 09/10/2017 Medications * Be aware that medications may not be up to date on this document. Alwaysverify current medications with the patient. cetirizine (ZYRTEC) 10 MG tablet Take 10 mg by mouth at bedtime Active montelukast (SINGULAIR) 10 MG tablet Take 10 mg by mouth at bedtime Active venlafaxine XR 24hr (EFFEXOR XR) 75 MG capsule Take 37.5 mg by mouth daily with dinner Active albuterol HFA (PROVENTIL;JEANNE TOLIN;PROAIR) 108 (90 BASE) MCG/ACT inhaler Inhale 2 puffs by mouth every 4 hours as needed Active budesonide-for moterol (SYMBICORT) 160-4.5 MCG/ACT inhaler Inhale 2 puffs by mouth 2 times daily 1 Inhaler 5 8 Active atorvastatin (LIPITOR) 20 MG tablet Take 20 mg by mouth at bedtime Active dulaglutide (TRULICITY) 1.5 MG/0.5ML injection Inject 1.5 mg subcutaneously every 7 days Active albuterol-ipra tropium (DUO-NEB) 0.5-2.5 (3) MG/3ML nebulizer solution Inhale 3 mL by mouth 4 times daily 12 vial 0 Active predniSONE (DELTASONE) 10 MG tablet Continue taking 10 mg prednisone daily Till you get xolair shot. After you get that , take prednisone 5 mg daily for three more days 60 tablet 0 Active benzonatate (TESSALON) 100 MG capsule Take 1 capsule by mouth 3 times daily as needed for Cough 12 capsule 0 Active predniSONE (DELTASONE) 5 MG tablet Take 1 tablet by mouth once daily Start taking prednisone 5mg tablet for three days after getting the xolair shot. 3 tablet 0 Active insulin degludec (TRESIBA FLEXTOUCH) 200 UNIT/ML pen Inject 76 Units subcutaneously once daily Active Insulin Lispro (HUMALOG KWIKPEN) 100 UNIT/ML Inject 15 units subQ with breakfast, 30 units with lunch, and 30 units with dinner. 0 Active EPINEPHrine (EPIPEN) 0.3 MG/0.3ML auto-injector pen Inject 0.3 mL into muscle once as needed for Anaphylaxis 2 syringe 1 0 Active omalizumab (XOLAIR) prefilled syringe Inject 375 mg subcutaneously every 14 days 2.5 mL 0 Active Active Problems Problem Noted Date Diagnosed Date Moderate persistent asthma without complication 06/24/2019 NICOLE (obstructive sleep apnea) 06/24/2019 PND (post-nasal drip) 06/24/2019 Pulmonary hypertension 05/20/2019 Preeclampsia 11/24/2017 Type 2 diabetes mellitus wit hout complication, with long-term current use of insulin 09/10/2017 Endometriosis 09/10/2017 History of 09/10/2017 Hx of preeclampsia, prior pr egnancy, currently , second trimester 09/10/2017 Resolved Problems Problem Noted Date Diagnosed Date Resolved Date Asthma with acute exacerbation 08/06/2019 08/20/2019 Exacerbation of asthma 08/06/201908/15 Severe persistent asthma wit h acute exacerbation 05/07/2019 05/21/2019 Asthma with acute exacerbation 11/24/2017 12/08/2017 Asthma with acute exacerbation 09/10/2017 09/24/2017 Supervision of other high ri sk pregnancies, second trimester 09/10/2017 12/03/2017 HSV-2 infection complicating , second trimester 09/10/2017 12/03/2017 Immunizations Immunization Administration Dates Next Due INFLUENZA VACCINE, QUADR. (F LUZONE; FLULAVAL; FLUARIX; AFLURIA QUADRIVALENT; 6MO+), 0.5 ML (IIV4) 05/09/2019 Family History Medical History Relation Name Comments Diabetes - Type 2 Father Other Father Stents for card iac blockage Cancer - Colon Mother Found Polyps Cancer - Skin, Melanoma Mother Diabetes - Type 2 Other Relation Name Status Comments Father Mother Alive Other Social History Tobacco Use Types Packs/Day Years Used Date Smoking Tobacco: Never Smokeless Tobacco: Never Alcohol Use Standard Drinks/Week Comments Not Currently 0 (1 standard drink = 0.6 oz pur e alcohol) AUDIT-C Answer Date Recorded Frequency of Alcohol Consumption Monthly or less 05/08/2019 Average Number of Drinks 1 or 2 019 Frequency of Binge Drinking Never 04/16 Comments No Sex and Gender Information Value Date Recorded Sex Assigned at Not on file Legal Sex Female 5:33 AM ORDER PROCESSING MANAGER Gender Identity Not on file Sexual Orientation Not on file 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 Not on file Not on file Last Filed Vital Signs Vital Sign Reading Time Taken Comments Blood Pressure 142/76 12/05/2019 3:53 PM CDT Pulse 105 12/05/2019 3:53 PM CDT Temperature 36.8 C (98.2 F) 08/11/2019 11:02 AM ORDER PROCESSING MANAGER Respiratory Rate 18 08/11/2019 3:48 PM ORDER PROCESSING MANAGER Oxygen Saturation 98% 12/05/2019 3:53 PM CDT Inhaled Oxygen Concentration 21% 08/07/2019 4 :29 PM ORDER PROCESSING MANAGER Weight 100.7 kg (222 lb) 09/25/2019 1:41 PM CDT Height 170.2 cm (5' 7) 09/25/2019 1:41 PM CDT Body Mass Index 34.77 09/25/2019 1:41 PM CDT Plan of Treatment Health Maintenance Due Date Last Done Comments MAMMOGRAM 1984 HIV SCREENING 1999 HEPATITIS C SCREENING 07/02/2002 DTAP/TDAP/TD VACCINES (1 - Tdap) 2003 HEPATITIS B VACCINE (1 of 3 - 19+ 3-dose series) 2003 PNEUMOCOCCAL VACCINE (1 of 2 - PCV) 2003 DIABETES-FOOT EXAM WITH MONOFILAMENT 05/20/2019 DIABETES-HGB A1C 08/08/2019 05/08/2019, , 09/11/2017 DIABETES-SERUM CREATININE 08/06/20202019, 08/06/2019, 08/06/2019, Additional history exists COVID-19 VACCINE ( - season) 2024 DEPRESSION SCREENING 07/16/2024 DIABETES - URINE PROTEIN SCREENING 07/16/2024 11/24/2017, 09/10/2017 INFLUENZA VACCINE (Season Ended) 2025 05/09/2019, 04/10/2018, 08/16/2015 ZOSTER VACCINE (1 of 2) 2034 HIB VACCINE Aged Out No longer eligi ble based on patient's age to complete this topic HPV VACCINE Aged Out No longer eligi ble based on patient's age to complete this topic MENINGOCOCCAL (Group B) VACCINE SHARED DECISION-MAKING Aged Out No longer eligible based on patient's age to complete this topic MENINGOCOCCAL GROUPS A/C/Y/W VACCINE Aged Out No longer eligible based on patient's age to complete this topic Procedures Procedure Name Priority Date/Time Associated Diagnosis Comments COMPREHENSIVE METABOLIC PANEL STAT 08/06/2019 6:38 PM ORDER PROCESSING MANAGER HEMOGLOBIN A1C Routine 05/08/2019 4:31 AM CDT PROTEIN CREATININE RATIO URINE RANDOM PNL STAT 11/24/2017 4:51 PM CDT from Last 3 Months or Most Recently Relevant to Health Maintenance Results * (ABNORMAL) COMPREHENSIVE METABOLIC PANEL (08/06/2019 6:38 PM [facility]) Glucose 343(H) 70 - 105 mg/dL 08/06/2019 7:07 PM [facility] Sodium 131(L) 136 - 145 mmol/L 08/06/2019 7:07 PM [facility] Potassium 4.6 3.5 - 5.1 mmol/L 08/06/2019 7:07 PM [facility] Comment:Specimen Moderately Hemolyzed Chloride 98 98 - 107 mmol/L 08/06/2019 7:07 PM [facility] CO2 17(L) 23 - 31 mmol/L 08/06/2019 7:07 PM [facility] Calcium 10.2 8.4 - 10.4 mg/dL 08/06/2019 7:07 PM [facility] Anion Gap 16 8 - 16 mmol/L 08/06/2019 7:07 PM [facility] BUN 21(H) 7 - 18.7 mg/dL 08/06/2019 7:07 PM [facility] Creatinine 0.99 0.57 - 1.11 mg/dL 08/06/2019 7:07 PM [facility] Alkaline Phosphatase 108 40 - 150 U/L 08/06/2019 7:07 PM [facility] ALT 50 0 - 61 U/L 08/06/2019 7:07 PM [facility] AST 50(H) 5 - 34 U/L 08/06/2019 7:07 PM [facility] Protein Total 9.4(H) 6.4 - 8.3 gm/dL 08/06/2019 7:07 PM [facility] Albumin 4.6 3.5 - 5.2 gm/dL 08/06/2019 7:07 PM [facility] Bilirubin Total 0.4 0.2 - 1.0 mg/dL 08/06/2019 7:07 PM [facility] eGFR by MDRD >60 >60 mL/min/1.7 3m2 08/06/2019 7:07 PM [facility] eGFR by MDRD >60 >60 mL/min/1.7 3m2 08/06/2019 7:07 PM ORDER PROCESSING MANAGER [facility] Blood BLOOD SPECIMEN / Unknown Venipuncture / Unknown 08/06/2019 6:38 PM ORDER PROCESSING MANAGER 08/06/2019 6:43 PM ORDER PROCESSING MANAGER Beatriz Maiann-marie SILK SPOTTER-LOCKSTITCH LINING SETTER LAB - CHEMISTRY ORDERA BLES Final Result Performing Organization Address City/[facility]/ZIP Co de Phone Number [facility] [address] [place] [phone] * (ABNORMAL) HEMOGLOBIN A1C (05/08/2019 4:31 AM CDT) Hemoglobin A1c 11.4(H) 4.0 - 6.1 % 05/08/2019 6:10 AM CDT [facility] Estimated Average Glucose 280 mg/dL 05/08/2019 6:10 AM CDT [facility] Blood BLOOD SPECIMEN / Unknown Lab Venipuncture / Unknown 05/08/2019 4:31 AM CDT 05/08/2019 5:53 AM CDT Vadim Rocha MD LAB - CHEMISTRY ORDERABLES Final Result Performing Organization Address [facility] de Phone Number [facility] [address] [place] [phone] * PROTEIN CREATININE RATIO URINE RANDOM PNL (11/24/2017 4:51 PM CDT) Protein Urine 661.6 mg/dL 11/24/2017 5:21 PM CDT [facility] Creatinine Urine 230 mg/dL 11/24/2017 5:21 PM CDT [facility] Protein/Creatin ine Ratio Urine 2.88 11/24/2017 5:21 PM CDT [facility] Urine URINE SPECIMEN OBTAINED BY CLEAN CATCH PROCEDURE / Unknown Collection / Unknown 11/24/2017 4:51 PM CDT 11/24/2017 4:59 PM CDT Concepcion Alfred MD LAB - URINE CHEMISTRY ORDERAB LES Final Result Performing Organization Address [facility] Co de Phone Number [facility] [address] [place] [address] from Last 3 Months or Most Recently Relevant to Health Maintenance Insurance [employer] Advance Directives * Full Code (Latest Code Status on File) Date Activated Date Inactivated Comments 08/06/2019 8:01 PM 08/11/2019 5:29 PM * Full Code Date Activated Date Inactivated Comments 05/07/2019 11:23 PM 05/09/2019 12:44 PM * Full Code Date Activated Date Inactivated Comments 11/25/2017 10:16 AM 11/30/2017 3:59 PM * Full Code Date Activated Date Inactivated Comments 11/24/2017 6:52 PM 11/24/2017 10:21 PM * Full Code Date Activated Date Inactivated Comments 11/24/2017 3:08 PM 11/24/2017 6:52 PM Care Teams Back Roll Lathe Operator Relationship Specialty Start Date End Date Ryan Ventura MD PCP - General Internal Medicine 09/10/17
--- OUTSIDE RECORDS SUMMARY | 2025-01-14 15:13 | XMS_ITS | Encounter Summary ---
Author Organization [facility] Address [address] [place] [address] Care Team Providers Care Client Program Manager Name Role Phone Ryan Ventura MD Primary Care Provider U Neel Chan MD Unavailable [phone] Ander Spencer MD Primary Care Provider [phone] Encounter Details Date Type Department Care Team (Late st Contact Info) Description 04/18/2022 NOTIK Message Enc [facility] Family & Internal Medicine [address] [address] [place], [facility] Provider Due for routine follow up appt Social History Tobacco Use Types Packs/Day Years [...] CDT Gender Identity Female 07/26/2021 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 Answer Date of Assessment Author Status No 08/02/2019 4:45 PM STEEL BARREL REAMER Activ e * Do you have serious difficulty walking or climbing stairs? Answer Date of Assessment Author Status No 08/02/2019 4:45 PM STEEL BARREL REAMER Dorota Centeno RN Active * Do you have difficulty dressing or bathing? Answer Date of Assessment Author Status No 08/02/2019 4:45 PM STEEL BARREL REAMER Dorota Centeno RN Active * Because of a physical, mental, or emotional condition, do you have difficulty doing errands alone such as visiting a doctor's office or shopping? Answer Date of Assessment Author Status No 08/02/2019 4:45 PM STEEL BARREL REAMER Dorota Centeno RN Active documented as of this encounter Mental Status * Because of a physical, mental, or emotional condition, do you have serious difficulty concentrating, remembering, or making decisions? 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
--- OUTSIDE RECORDS SUMMARY | 2025-01-14 15:14 | XMS_ITS | Clinical Summary ---
Author Organization [facility] Address [address] [place] [address] Phone Care Team Providers Care Analyst Market Intelligence Name Role Phone Ryan Ventura MD Primary Care Provider [phone] Allergies Active Allergy Reactions Criticality Noted Date Comments Adhesive Tape-Silicones Rash Low 12/09/2020 On tegaderm products Cefaclor Other (See Comments) 10/21/2020 Serum Sickness Metoclopramide Anxiety,Other (See Comments),Hallucinat ion Medium 02/05/2017 Reaction: SEE ALLERGY COMMEN, Extreme agitation Extreme agitation/Psych symptoms Morphine Hives,Rash High 02/05/2017 Reaction: HIVES Nifedipine Other (See Comments),Swelling Medium 12/03/2017 ?? Swelling w/ thjs RX or Pre-E ? Swelling w/ thjs RX or Pre-E ?? Nitrofurantoin Shortness of Breath/Wheezing High 10/21/2020 Nitrofurantoin Monohyd/M-Cryst Rash Low 10/21/2020 Penicillins Hives High 10/21/2020 Sulfa (Sulfonamide Antibiotics) Anaphylaxis High 12/09/2020 Reaction: ANAPHYLAXIS Sulfamethoxazole-Trimet hoprim Anaphylaxis High 10/21/2020 Tree Nuts Anaphylaxis High 09/10/2017 Trimethoprim Anaphylaxis High 02/05/2017 Reaction: ANAPHYLAXIS Medications dulaglutide (TRULICITY SUBCUT) Inject by subcutaneous injection every 7 days. On Fridays Active albuterol HFA 90 mcg inhaler Take 2 Puffs by inhalation every 4 hours as needed for Shortness of Breath. Active budesonide-for moteroL (SYMBICORT) 160-4.5 mcg/actuation HFA Aerosol Inhaler Take 2 Puffs by inhalation 2 times daily. Active montelukast (SINGULAIR) 10 mg tablet Take 10 mg by mouth daily at bedtime. Active atorvastatin calcium (ATORVASTATIN ORAL) Take 20 mg by mouth daily with supper. Active venlafaxine HCl (VENLAFAXINE ORAL) Take 37.5 Capsules by mouth daily at bedtime. Active subcutaneous insulin pump by [facility].(Non-Drug; Combo Route) route see administration instructions. Continuous and bolus with meals, Dexcom that talks with pump Active cetirizine (ZyrTEC) 10 mg tablet Take 10 mg by mouth daily at bedtime. Active valACYclovir (VALTREX) 1 gram tablet Take 1,000 mg by mouth daily at bedtime. Active HYDROcodone-ac etaminophen (HYCET) 7.5-325 mg/15 mL SolutionIndica tions:Preop testing Take 15 mL by mouth every 6 hours as needed for Pain. Max Daily Amount: 60 mL 280 mL 1 Active famotidine (PEPCID) 20 mg tablet Take 1 Tablet (20 mg) by mouth 2 times daily. 60 Tablet 2 1 Active ondansetron (Zofran) 4 mg Tablet Take 1 Tablet (4 mg) by mouth every 8 hours as needed for Nausea or Nausea/Emesis. 50 Tablet 1 Active Active Problems Problem Noted Date Diagnosed Date Morbid obesity with body mass index of 40.0-49.9 S/P laparoscopic sleeve gastrectomy H/O insulin dependent diabetes mellitus Mood disorder Immunizations Immunization Administration Dates Next Due (ADACEL/BOOSTRIX)(10 YR UP) TDAP VACCINE, 0.5ML, IM 02/08/2011 INFLUENZA VACCINE QUADRIVALE NT 6 MOS UP CELL DERIVED PF IM 06/02/2020 INFLUENZA VACCINE QUADRIVALE NT 6 MOS UP PF IM 05/09/2019 Influenza Seasonal Unspecifi ed Formulation IM 05/09/2019,04/10/2018,08/16/2015 Social History Tobacco Use Types Packs/Day Years Used Date Smoking Tobacco: Never Smokeless Tobacco: Never Alcohol Use Standard Drinks/Week Comments Yes 0 (1 standard drink = 0.6 oz pur e alcohol) rare Comments No Sex and Gender Information Value Date Recorded Sex Assigned at Not on file Legal Sex Female 1:09 PM CDT Gender Identity Not on file Sexual Orientation Not on file Last Filed Vital Signs Vital Sign Reading Time Taken Comments Blood Pressure 137/84 12/21/2020 12:59 PM CDT Pulse 104 12/20/2020 10:57 PM CDT Temperature 37 C (98.6 F) 12/21/2020 12:59 PM CDT Respiratory Rate 18 12/21/2020 12:5 9 PM CDT Oxygen Saturation 96% 12/21/2020 12: 59 PM CDT Inhaled Oxygen Concentration - - Weight 103.7 kg (228 lb 9.6 oz) 12/20/2020 8:37 AM CDT Height 162.6 cm (5' 4) 12/20/2020 8:37 AM CDT Body Mass Index 39.24 12/20/2020 8:37 AM CDT Plan of Treatment Health Maintenance Due Date Last Done Comments DIABETES ANNUAL FOOT EXAM 2002 DIABETES ANNUAL RETINAL EXAM 2002 DIABETES MICROALBUMIN ANNUAL SCREEN 2002 LDL CHOLESTEROL ANNUAL 2002 HEPATITIS B VACCINES (1 of 3 - 19+ 3-dose series) 2003 HPV/Cotest (21-29) 2005 CERVICAL CANCER SCREENING 2014 HPV/Cotest (30-65) 2014 PAP SMEAR 2014 DTAP/TDAP/TD VACCINES (2 - Td or Tdap) 02/08/2021 02/08/2011 DIABETES HBA1C Q 6 MONTHS 07/13/20232022, 01/10/2023, 12/14/2020, Additional history exists BREAST CANCER SCREENING 2024 INFLUENZA VACCINE (#1) 2025 , 05/09/2019, 05/09/2019, Additional history exists HPV VACCINES Aged Out No longer eligi ble based on patient's age to complete this topic Medical Devices Implanted Type Area Switchman Supervisor Device Identifier Shelf Expiration Date Model / Serial / Lot Seamguard Endogia 60 Blk [id number] - [id number] Implanted:Qty : 2 on 12/20/2020 by Rachel Avitia MD at [facility] N/A: Abdomen [employer] 07/27/2023 [id number] / / [id number] Seamguard Endogia 60 Prpl [id number] - [id number] Implanted:Qty : 2 on 12/20/2020 by Rachel Avitia MD at [facility] N/A: Abdomen [employer] 09/05/2023 [id number] / / [id number] Seamguard Endogia 60 Prpl [id number] - [id number] Implanted:Qty : 1 on 12/20/2020 by Rachel Avitia MD at [facility] N/A: Abdomen [employer] 06/14/2023 [id number] / / [id number] Procedures Procedure Name Priority Date/Time Associated Diagnosis Comments HEMOGLOBIN A1C Routine 12/14/2020 10:16 AM CDT from Last 3 Months or Most Recently Relevant to Health Maintenance Results * (ABNORMAL) HEMOGLOBIN A1C (12/14/2020 10:16 AM CDT) HEMOGLOBIN A1C 10.0(H) <=5.6 % 12/14/2020 11:16 AM CDT [facility] EST. AVG GLUCOSE, A1C 240 mg/dL 12/14/2020 11:16 AM CDT [facility] Blood Venipuncture / Unknown 12/14/2020 10:16 AM CDT 12/14/2020 11:01 AM CDT Narrative [facility] - 12/14/2020 11:16 AM CDT HGB A1C INTERPRETATION NORMAL: <5.7% PRE-DIABETES: 5.7 - 6.4% DIABETES: 6.5% OR GREATER Rachel Avitia MD CHEMISTRY ORDERABLES Final Result [facility] CLIA# [id number] [place] [address] from Last 3 Months or Most Recently Relevant to Health Maintenance Insurance RX [facility] [employer] Advance Directives For more information, please contact: [phone] * Full Code (Latest Code Status on File) Date Activated Date Inactivated Comments 12/20/2020 1:05 PM 12/21/2020 6:09 PM Care Teams Analyst Market Intelligence Relationship Specialty [place] [id number] [id number] PCP - General Internal Medicine 11/11/20
== END 2025-01-14 15:08 | disposition home or self-care (01) ==
PROVIDERS: PCP Internal Medicine; Visit Provider Internal Medicine
DX: Z12.31 Encounter for screening mammogram for malignant neoplasm of breast (principal)
CPT/HCPCS: 77063; 77067